=== PATIENT | male | born 1980 ===

== ENCOUNTER 2016-07-24 23:59 | Inpatient (IN) ==
[2016-07-25] MEDS ORDERED: ACETAMINOPHEN 325 MG TABLET PO PRN (00:38)
[2016-07-25] MEDS ORDERED: oxyCODONE/ACETAMINOPHEN 5-325 MG TABLET PO PRN (00:38)
[2016-07-25] MEDS ORDERED: ONDANSETRON 4 MG/2 ML VIAL IV PRN (00:38)
[2016-07-25] MEDS ORDERED: MORPHINE 2 MG/1 ML SYRINGE IV PRN (00:38)
--- NOTE | 2016-07-25 00:38 | Emergency Department Note ---
Boni Chacon Brittany, am scribing for, and in the presence of, Senthil Trevino MD 00:29. Uriel Chacon Robert M, MD, personally performed the services described in this documentation, ascribed by Mary Plata in my presence, and it is both accurate and complete . Arrival - Arrival Chief Complaint: Extremity Problem ED Nursing Triage Note: PT ARRIVES VIA TRANSFER FROM [facility] FOR FURTHER EVAL OF POSSIBLE CELLULITIS TO LEFT FOOT AND NECROTIC FIFTH TOE. PT STATES THAT HE STARTED HAVING PROBLEMS WITH FOOT ABOUT A MONTH AGO AND THAT IT HAS GOTTEN WORSE. DENIES ANY FEVER AND DENIES BEING COMPLIANT WITH MEDICATION. PT IS NOTED TO HAVE ELEVATED B/P AT TIME OF TRIAGE. Mode of Arrival: Stretcher Limitations: No Limitations Source: Patient, RN Notes Reviewed Time Seen by Provider: 07/25/16 00:24 - History of Present Illness HPI Narrative: Patient is a 35 y/o [place] male presenting to the ED by EMS from [facility] for further evaluation of necrotic left fifth toe. Patient states , "I think it's ," in reference to his left fifth toe. Patient reports that his toe began to appear as it does now about a week ago, but problems began about 3 weeks ago as a blister but has progressively worsened to necrosis. He does have a history of IDDM, last blood glucose level was 312 mg/dL and was given insulin at the transferring facility. Patient has no other complaint/pain in the ED at this time. Review of System - Review of System 12 point system: reviewed and no additional remarkable complaints except as stated - Review of System Constitutional: Absent: chills, fever Eyes: Absent: vision change Head/Ears/Nose/Throat: Absent: nasal drainage, sore throat Respiratory: Absent: respiratory distress Cardiovascular: Absent: chest pain Gastrointestinal: Absent: abdominal pain, nausea, vomiting, diarrhea, constipation Genitourinary male: Absent: urgency, dysuria, frequency Musculoskeletal: Absent: arm pain, back pain, leg pain, neck pain Skin: Present: as per HPI Neurological: Absent: headache Psychiatric: Absent: anxiety, depression Medical,Surgical,& Family Hx - Medical History Cardio: History of: Hypertension Endocrine: History of: Diabetes Mellitus (IDDM) - Social History Smoking Status: Never smoker Frequency of Alcohol Use: None Type of Drug Use: None Exam Vital Signs: Vital Signs Temperature 98.4 F 07/24/16 23:59 Pulse Rate 99 H 07/24/16 23:59 Respiratory Rate 22 07/24/16 23:59 Blood Pressure 205/116 07/24/16 23:59 O2 Sat by Pulse Oximetry 96 07/24/16 23:59 - General General appearance: alert, in no apparent distress - Head Head exam: Present: atraumatic, normocephalic, normal inspection - Eye Eye exam: Present: normal appearance, PERRL, EOMI - ENT ENT exam: Present: normal exam, normal oropharynx - Neck Neck exam: Present: normal inspection, full ROM, trachea midline - Chest Chest inspection: Present: normal inspection, symmetric chest wall rise - Respiratory Respiratory exam: Present: normal lung sounds bilaterally. Absent: rales, rhonchi, wheezes - Cardiovascular Cardiovascular exam: Present: regular rate, normal rhythm, normal heart sounds. Absent: murmur, rubs, gallop - Abdominal Exam Abdominal exam: Present: soft, normal bowel sounds. Absent: distention, tenderness - Extremities Exam Extremities exam: Present: full ROM. Absent: normal inspection (dry, necrotic black left fifth toe), tenderness - Back Exam Back exam: Present: normal inspection - Neurological Exam Neurological exam: Present: alert, oriented X3, CN II-XII intact. Absent: motor sensory deficit - Psychiatric Psychiatric exam: Present: normal affect - Skin Skin exam: Present: warm, dry, other (necrotic, dry left fifth toe) Disposition Clinical Impression: Left fifth toe gangrene Case discussed with: patient Disposition: Still a Patient Condition: Stable Time of Disposition: 00:37
[2016-07-25] MEDS ORDERED: GLUCAGON 1 MG VIAL IM PRN (00:39)
[2016-07-25] MEDS ORDERED: DEXTROSE 50% 25 GM/50 ML VIAL IV PRN (00:39)
[2016-07-25] MEDS ORDERED: cloNIDine 0.1 MG TABLET ONE (01:22)
[2016-07-25] MEDS ORDERED: INSULIN REGULAR 100 UNIT/ML ONE (01:25)
[2016-07-25] MEDS: INSULIN REGULAR 100 UNIT/ML SUBCUT SCH ×4 (01:29→18:03)
[2016-07-25] MEDS ORDERED: LABETALOL 20 MG/4 ML SYRINGE IV PRN (02:01)
[2016-07-25] MEDS: SODIUM CHLORIDE 0.45% 1,000 ML IV SCH ×3 (02:47→20:31)
[2016-07-25] MEDS: PIPERACILLIN/TAZOBACTAM 3,375 MG in SODIUM CHLORIDE 0.9% 100 ML IV SCH ×3 (02:47→17:14)
[2016-07-25 08:05] LABS: Basophils % 0.2 % (0.0-0.8); Eosinophils # 0.1 10*3/uL (0.0-0.87); Eosinophils % 0.6 % (0.00-10.9); Hematocrit 35.6 VOL% (42.0-52.0); Hemoglobin 11.5 GM/DL (14.0-18.0); Immature Granulocytes % 0.5 %; Immature Granulocytes Absolute 0.06 #; Lymphocytes # 2.3 10*3/uL (1.4-4.0); Lymphocytes % 18.6 % (21.2-54.2); Mean Corpuscular HGB Conc 32.3 GM/DL (32-36); Mean Corpuscular Hemoglobin 26 PG (27-34); Mean Corpuscular Volume 81.1 FL (87-102); Mean Platelet Volume 10.2 FL (9.6-12.0); Monocytes # 1.1 10*3/uL (0.11-0.8); Monocytes % 8.9 % (1.7-12.7); Neutrophils # 8.7 10*3/uL (1.4-7.4); Neutrophils % 71.2 % (38.7-73.9); Platelet Count 434 T/CUMM (130-400); Red Blood Count 4.39 MC/CUMM (3.8-5.5); Red Cell Distribution Width 12.3 % (9.3-17.3); White Blood Count 12.2 T/CUMM (4-12)
--- NOTE | 2016-07-25 08:28 | General Surg History&Physical ---
Assessment and Plan (1) Diabetic wet gangrene of the foot Status: Acute Assessment and plan: Depression: Wet gangrene left fifth toe and distal foot Plan: Patient has been admitted and started on IV antibiotics. I discussed with him the need for amputation of his fifth toe and debridement of the nonviable tissue in efforts to salvage the majority of his foot. He understands he is at risk for a higher amputation. I discussed the procedure for a left fifth toe amputation and debridement and how procedures performed and anticipated recovery. He understands she'll have an open wound. Risk of the procedure including bleeding, infection, damage to surrounding structures, need for further surgery were all discussed in detail and he agrees to proceed. We'll consult hospitalist to manage his medical problems. He understands he may lose more than the fifth toe if the infectious process is extensive. Current Visit: Yes History of Present Illness Chief complaint: infected left foot History of present illness: Mr. Marquez is a 35 year old male with poorly controlled hypertension and diabetes presented to [facility] and then subsequently transferred to our emergency room with infection of his left foot. Patient states he's had a problem for over a month. He states the problem started in his left fifth toe and he developed redness and foul-smelling drainage. He denies fever. He denies chest pain and shortness of breath. He is not very compliant with his medications. Home Medications Medication Instructions Recorded Confirmed Type Chlorthalidone 25 mg PO DAILY 07/25/16 07/25/16 History hydrALAZINE TAB [Apresoline Tab] 25 mg PO DAILY 07/25/16 07/25/16 History Allergies Allergy/AdvReac Type Severity Reaction Status Date / Time No Known Allergies Allergy Unverified 07/25/16 01:16 Medical,Surgical,& Family Hx - Medical History Cardio: History of: Hypertension HEENT: History of: Eye Problem (wear glasses) Endocrine: History of: Diabetes Mellitus (IDDM) - Family History Family History: Reports;: Family Heart Disease (maternal aunt and uncle) - Social History Smoking Status: Never smoker Frequency of Alcohol Use: None Type of Drug Use: None Exam - Constitutional Vitals: Period Temp Pulse Resp BP Sys/Vogt Pulse Ox Last 24 Hr 98.5 F-99.4 F 79-94 18-22 141-191/84-115 95-99 General appearance: no acute distress - Head Head exam: Present: normocephalic - Neck Neck exam: Present: normal inspection - Respiratory Respiratory exam: Present: clear to auscultation bilaterally - Cardiovascular Cardiovascular exam: Present: RRR - GI/Abdominal GI/Abdominal exam: Present: soft (obese and nontender) - Extremities Exam Extremities exam: Present: other (feet warm bilaterally. Most of the left fifth toe has dry gangrene and appears mummified. The base of the toe has wet gangrene with foul-smelling purulence. Erythema extends to the mid foot along the lateral aspect of the foot.) - Back Exam Back exam: Present: normal inspection - Neurological Exam Neurological exam: Present: alert, oriented X3 Speech: Present: normal 12 point system: reviewed and no additional remarkable complaints except as stated Results - Labs CBC & BMP: 07/25/16 07:41 Lab Results: I have reviewed the past 24 hour labs
[2016-07-25 08:35] LABS: Calcium 8.1 MG/DL (8.5-10.1); Potassium 3.9 MMOL/L (3.5-5.1)
[2016-07-25] MEDS ORDERED: LABETALOL 100 MG/20 ML VIAL IV ONE (09:04)
[2016-07-25] MEDS ORDERED: hydrALAZINE 20 MG/1 ML VIAL ONE (10:01)
[2016-07-25] MEDS ORDERED: MIDAZOLAM 2 MG/2 ML VIAL ONE (10:03)
[2016-07-25] MEDS ORDERED: fentaNYL 100 MCG/2 ML VIAL ONE (10:03)
--- NOTE | 2016-07-25 10:06 | EKG Report ---
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
[2016-07-25] MEDS ORDERED: hydrALAZINE 20 MG/1 ML VIAL IM ONE (10:12)
--- NOTE | 2016-07-25 10:29 | Operative Note ---
Date of procedure: 07/25/16 Pre-op diagnosis: wet gangrene left fifth toe Post-op diagnosis: same Procedure: Procedure performed: Transmetatarsal amputation left fifth toe Procedure in detail: After informed consent was obtained, patient was taken operating suite and laid supine on the operating table. After monitored anesthesia was induced the left foot was prepped and draped in usual sterile fashion. After procedural pause 15 blade scalpel was used to perform a elliptical incision around the base of the left fifth toe. Dissection carried into the soft tissue which appeared necrotic on the medial aspect. Dissected down to the interphalangeal joint and removed the toe at this level. There was obvious osteomyelitis. Debrided back the soft tissue and performed a transmetatarsal amputation removing the head of the metatarsal with bone cutters. I then excised the remaining necrotic tissue using a 15 blade scalpel. This necrotic tissue was removed from the plantar surface below the head of the fourth metatarsal as well as close to the lateral aspect of the fourth metatarsal phalangeal joint. Removed all the nonviable tissue. The left fourth toe was not obviously involved but the infection extended very close to it and he may require fourth toe amputation in the future. The wound was irrigated and suction there was good hemostasis and it was packed with Dakin 's gauze. Sterile dressings applied. Patient was taken recovery room in stable condition. All lap and needle counts correct at the end of the case. Anesthesia: MAC Surgeon / Physician: Jorge Nagel Estimated blood loss: other (less than 10 mL) Specimens: other (left fifth toe) Condition: stable Disposition: PACU Results - Labs CBC & BMP: 07/25/16 07:41 07/25/16 07:41 Discharge Plan - Discharge Medications No Action Chlorthalidone 25 mg PO DAILY hydrALAZINE TAB [Apresoline Tab] 25 mg PO DAILY - Follow Up or Referral - Forms/Instructions
[2016-07-25 10:47] LABS: Troponin I Only 0.081 NG/ML (0.00-0.045)
--- NOTE | 2016-07-25 12:15 | Anesthesia ---
Anesthesia Post OP - Post Ansesthetic Evaluation Patient seen in post op: Yes Resp: within normal limits CV: within normal limits Mental: within normal limits Temp: within normal limits [id number]: within normal limits Nausea and Vomiting: within normal limits Pain: within normal limits
--- NOTE | 2016-07-25 13:58 | Hospitalist Consult Note ---
Assessment and Plan (1) DM2 (diabetes mellitus, type 2) Status: Acute Assessment and plan: The patient was admitted to hospital with hyperglycemia. It is improving with sliding scale insulin. I am going to add glipizide and follow glucometers. Current Visit: Yes Qualifiers: Diabetes mellitus complication status: with neurologic complications Diabetes mellitus complication detail: with polyneuropathy Diabetes mellitus fpc insulin use: without fpc use Qualified Code(s): E11.42 - Type 2 diabetes mellitus with diabetic polyneuropathy (2) Diabetic wet gangrene of the foot Status: Acute Current Visit: Yes History of Present Illness - Data of Consult Consult date: 07/25/16 Requesting Physician: Jorge Nagel - Consult Narrative Reason for consult: Hyperglycemia History of present illness: Mr. Marquez is a 35 year old male CC: Jorge Nagel MD - Home Medications and Allergies Home Medications: Home Medications Medication Instructions Recorded Confirmed Type Chlorthalidone 25 mg PO DAILY 07/25/16 07/25/16 History hydrALAZINE TAB [Apresoline Tab] 25 mg PO DAILY 07/25/16 07/25/16 History Allergies/Adverse Reactions: Allergies Allergy/AdvReac Type Severity Reaction Status Date / Time No Known Allergies Allergy Unverified 07/25/16 01:16 Medical,Surgical,& Family Hx - Medical History Cardio: History of: Hypertension HEENT: History of: Eye Problem (wear glasses) Endocrine: History of: Diabetes Mellitus (IDDM) - Family History Family History: Reports;: Family Heart Disease (maternal aunt and uncle) - Social History Smoking Status: Never smoker Frequency of Alcohol Use: None Type of Drug Use: None Marital Status: Single Lives With:: Parent Functional capacity: independent ambulation 12 point system: reviewed and no additional remarkable complaints except as stated Exam - Constitutional Vitals: Period Temp Pulse Resp BP Sys/Vogt Pulse Ox Last 24 Hr 97.6 F-99.4 F 79-94 18-23 137-191/84-115 10-100 Exam: Constitutional System: No distress. No tremulousness. Head: Normocephalic, atraumatic. Ears, Nose and Throat System: No evidence of Otitis or Mastoiditis. No epistaxis or discharge Eyes System: Pupils equal, round, and reactive. Extraocular muscles intact. Neck: Supple, without adenopathy, No jugular venous distention. No thyromegaly , neck mass, or prior surgery apparent. Respiratory System: Chest clear to auscultation. Cardiovascular System: Heart with regular rate and rhythm. No murmur. GI System: Abdomen soft, nontender. Normo active bowel sounds present. Results - Labs CBC & BMP: 07/25/16 07:41 07/25/16 07:41 Lab Results: I have reviewed the past 24 hour labs
[2016-07-25] MEDS: PANTOPRAZOLE 40 MG TABLET PO SCH (15:44)
[2016-07-25 17:03] LABS: Troponin I Only 0.067 NG/ML (0.00-0.045)
[2016-07-26] MEDS: INSULIN REGULAR 100 UNIT/ML SUBCUT SCH ×4 (00:50→18:50)
[2016-07-26] MEDS: PIPERACILLIN/TAZOBACTAM 3,375 MG in SODIUM CHLORIDE 0.9% 100 ML IV SCH ×3 (00:51→20:53)
[2016-07-26] MEDS: SODIUM CHLORIDE 0.45% 1,000 ML IV SCH ×4 (02:57→20:55)
[2016-07-26 03:15] LABS: Calcium 7.8 MG/DL (8.5-10.1); Magnesium 1.9 MG/DL (1.8-2.4); Potassium 3.5 MMOL/L (3.5-5.1)
[2016-07-26] MEDS ORDERED: glipiZIDE 5 MG TABLET PO SCH (07:30)
--- NOTE | 2016-07-26 08:30 | Event Note ---
07/26/2016 Status post amputation left fifth toe wound bed looks fairly clean although the dressing is dry and stuck to it. Will start in wound care to ensure that we do not get any dryness here with potential losing further skin.
[2016-07-26] MEDS: PANTOPRAZOLE 40 MG TABLET PO SCH (09:03)
[2016-07-26] MEDS ORDERED: SKIN HEALING OINT (AQUAPHOR) 50 GM TUBE TOP PRN (09:08)
[2016-07-26] MEDS: SODIUM HYPOCHLORITE 0.25% IRRIG 473 ML BOTTLE TOP SCH (09:45)
--- NOTE | 2016-07-26 12:34 | Hospitalist Progress Note ---
Assessment and Plan (1) DM2 (diabetes mellitus, type 2) Status: Acute Assessment and plan: The patient was admitted to hospital with hyperglycemia. It is improving with sliding scale insulin. I am going to increase glipizide and follow glucometers. Current Visit: Yes Qualifiers: Diabetes mellitus complication status: with neurologic complications Diabetes mellitus complication detail: with polyneuropathy Diabetes mellitus termite technician insulin use: without halfway use Qualified Code(s): E11.42 - Type 2 diabetes mellitus with diabetic polyneuropathy (2) Diabetic wet gangrene of the foot Status: Acute Current Visit: Yes Hospitalist: Subjective Interval history: The patient had surgery to debride infection of the left foot yesterday. Blood glucose has less than optimal control. I am going to increase glipizide today. The patient has no complaint of shortness of breath or angina Exam - Constitutional Vitals: Period Temp Pulse Resp BP Sys/Vogt Pulse Ox Last 24 Hr 98.2 F-99.7 F 89-94 18-20 133-187/81-112 91-96 Exam: Constitutional System: No distress. No tremulousness. Head: Normocephalic, atraumatic. Ears, Nose and Throat System: No evidence of Otitis or Mastoiditis. No epistaxis or discharge Eyes System: Pupils equal, round, and reactive. Extraocular muscles intact. Neck: Supple, without adenopathy, No jugular venous distention. No thyromegaly , neck mass, or prior surgery apparent. Respiratory System: Chest clear to auscultation. Cardiovascular System: Heart with regular rate and rhythm. No murmur. GI System: Abdomen soft, nontender. Normo active bowel sounds present. Results - Labs CBC & BMP: 07/25/16 07:41 07/26/16 02:30 Lab Results: I have reviewed the past 24 hour labs
[2016-07-26] MEDS: LABETALOL 100 MG/20 ML VIAL IV PRN (20:48)
[2016-07-27] MEDS: INSULIN REGULAR 100 UNIT/ML SUBCUT SCH ×5 (00:09→22:13)
[2016-07-27] MEDS: LABETALOL 100 MG/20 ML VIAL IV PRN ×2 (04:03→09:34)
[2016-07-27] MEDS: SODIUM CHLORIDE 0.45% 1,000 ML IV SCH ×3 (04:11→22:16)
[2016-07-27] MEDS: PIPERACILLIN/TAZOBACTAM 3,375 MG in SODIUM CHLORIDE 0.9% 100 ML IV SCH ×3 (04:12→22:14)
[2016-07-27 05:52] LABS: Basophils % 0.2 % (0.0-0.8); Eosinophils # 0.2 10*3/uL (0.0-0.87); Eosinophils % 1.8 % (0.00-10.9); Hematocrit 35.6 VOL% (42.0-52.0); Hemoglobin 11.7 GM/DL (14.0-18.0); Immature Granulocytes % 0.4 %; Immature Granulocytes Absolute 0.04 #; Lymphocytes # 2.3 10*3/uL (1.4-4.0); Lymphocytes % 23.2 % (21.2-54.2); Mean Corpuscular HGB Conc 32.9 GM/DL (32-36); Mean Corpuscular Hemoglobin 26 PG (27-34); Mean Corpuscular Volume 79.6 FL (87-102); Mean Platelet Volume 10.3 FL (9.6-12.0); Monocytes # 0.8 10*3/uL (0.11-0.8); Monocytes % 7.7 % (1.7-12.7); Neutrophils # 6.7 10*3/uL (1.4-7.4); Neutrophils % 66.7 % (38.7-73.9); Platelet Count 484 T/CUMM (130-400); Red Blood Count 4.47 MC/CUMM (3.8-5.5); Red Cell Distribution Width 12.4 % (9.3-17.3)
[2016-07-27 06:29] LABS: Calcium 8.2 MG/DL (8.5-10.1); Magnesium 2.1 MG/DL (1.8-2.4); Osmolality,Calculated 280.5 MOS/KG (273-304); Potassium 3.8 MMOL/L (3.5-5.1)
--- NOTE | 2016-07-27 09:30 | Hospitalist Progress Note ---
Assessment and Plan (1) DM2 (diabetes mellitus, type 2) Status: Acute Assessment and plan: The patient was admitted to hospital with hyperglycemia. It is improving with sliding scale insulin. The patient is now on glipizide 10 mg daily and I am going to change the glucometers to before meals and at bedtime. 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 Blood glucose control is improving on oral antidiabetic medication. Exam - Constitutional Vitals: Period Temp Pulse Resp BP Sys/Vogt Pulse Ox Last 24 Hr 98.0 F-98.8 F 86-94 16-20 164-194/91-117 91-96 Exam: Constitutional System: No distress. No tremulousness. Head: Normocephalic, atraumatic. Ears, Nose and Throat System: No evidence of Otitis or Mastoiditis. No epistaxis or discharge Eyes System: Pupils equal, round, and reactive. Extraocular muscles intact. Neck: Supple, without adenopathy, No jugular venous distention. No thyromegaly , neck mass, or prior surgery apparent. Respiratory System: Chest clear to auscultation. Cardiovascular System: Heart with regular rate and rhythm. No murmur. GI System: Abdomen soft, nontender. Normo active bowel sounds present. Results - Labs CBC & BMP: 07/27/16 05:23 07/27/16 05:23 Lab Results: I have reviewed the past 24 hour labs
[2016-07-27] MEDS: PANTOPRAZOLE 40 MG TABLET PO SCH (09:34)
[2016-07-27] MEDS: glipiZIDE 10 MG TABLET PO SCH (09:34)
[2016-07-27] MEDS ORDERED: NIFEdipine 10 MG CAPSULE PO PRN (09:56)
--- NOTE | 2016-07-27 11:06 | Event Note ---
07/27/2016. Patient remains stable at this point and wound care is underway. Cultures final are not completely out so we do not know what his sensitivities are at this time.
[2016-07-27] MEDS: LISINOPRIL 5 MG TABLET PO SCH (13:46)
[2016-07-27] MEDS: amLODIPine 10 MG TABLET PO SCH (13:47)
[2016-07-27] MEDS: SODIUM HYPOCHLORITE 0.25% IRRIG 473 ML BOTTLE TOP SCH (15:15)
[2016-07-28] MEDS: PIPERACILLIN/TAZOBACTAM 3,375 MG in SODIUM CHLORIDE 0.9% 100 ML IV SCH ×2 (06:31→12:57)
[2016-07-28] MEDS: SODIUM CHLORIDE 0.45% 1,000 ML IV SCH ×2 (06:33→09:00)
[2016-07-28] MEDS: INSULIN REGULAR 100 UNIT/ML SUBCUT SCH ×3 (07:53→15:54)
[2016-07-28] MEDS: glipiZIDE 10 MG TABLET PO SCH (07:56)
[2016-07-28] MEDS: amLODIPine 10 MG TABLET PO SCH (08:02)
[2016-07-28] MEDS: PANTOPRAZOLE 40 MG TABLET PO SCH (08:02)
[2016-07-28] MEDS: LISINOPRIL 5 MG TABLET PO SCH (08:02)
--- NOTE | 2016-07-28 11:03 | Pathology Report from [facility] ---
ACCESSION # : [id number] PATIENT NAME : Medina Proctor ORDERING DR : Jorge Nagel MD CLINICAL HX: Left foot fifth toe wet gangrene with abscess POST-OP DX: Same SPECIMEN INFO: Left fifth toe GROSS DESCRIPTION: The specimen is received in formalin labeled with the patient 's name Medina Proctor consists of a focally gangrenous toe measuring 3.8 x 2.2 cm, along with a bone fragment measuring 2.0 x 2.3 cm. Mate [place] sections of gangrenous tissue is submitted in one cassette. DIAGNOSIS FOR MEDINA PROCTOR: LEFT FIFTH TOE: Wet gangrene. SERVICE DATE: 07/25/2016 REPORT DATE: 07/28/2016 PATHOLOGIST: Shellie Willard III, M.D. MTDD
[2016-07-28] MEDS: SODIUM HYPOCHLORITE 0.25% IRRIG 473 ML BOTTLE TOP SCH (13:00)
--- NOTE | 2016-07-28 15:07 | Discharge Summary ---
Hospital Course - Hospital Course Hospital Course: Patient presented with white green gangrene of the left fifth toe for which we proceeded with fifth transmetatarsal amputation on 07/25/[address] Nagel. Hospitalist was consulted regarding persistent hyperglycemia which improved adding an oral agent. The patient was able to mobilize without difficulty and proceeded without complication. He was able to void and had a bowel movement without difficulty. Tolerating p.o. intake. Cultures grew Proteus and enterococcus. Dressing change on day of discharge revealed present resolution of erythema and no residual associated edema. He will require continued daily wound care changes as well as antibiotics. Necessity to improve glycemic control was reviewed with the patient to improve healing capacity and decrease risk of further loss of the foot. He expressed understanding. Pt discharged on levaquin 500mg PO daily x 2 wks. Modification to med list thru ambulatory orders. - Time spent with patient Time with patient DS: Less than 30 minutes Diagnosis - Discharge Diagnosis (1) Diabetic wet gangrene of the foot Status: Acute (2) DM2 (diabetes mellitus, type 2) Status: Acute Specialty Discharge - Follow Up or Referrals Follow up with: Jorge Nagel MD [Physician] - 1 Week Discharge Plan - Discharge Data Condition at Discharge: Stable Discharge Diet: diabetic diet (Wear offloading shoe - rx provided. Avoid prolonged standing or walking. Elevate LLE > 20 min/hr. ) Hygiene: may shower, keep area(s) dry Weight Bearing at Discharge: other (Wear offloading shoe ) Driving: other (No driving while taking narcotics) Contact your physician if you experience:: fever over 101, Difficulty voiding, Redness or swelling, Nausea/Vomiting, Shortness of breath, Bleeding, pain uncontrolled by pain medications (Drainage or malodor from foot wound) Wound / Dressing Care Instructions: Follow with wound care daily to left 5th transmetatarsal amputation site. Clean wound with saline. Apply dakins soaked gauze over the open wound. Apply vaseline gauze over de-epithelialized area of the wound. Cover with dry cauze, cast padding and loosely wrapped coban. - Discharge Medications New HYDROcodone/ACETAMIN 7.5-325 [[place] 7.5-325] 1 tablet PO Q4H PRN #30 tablet PRN Reason: Pain Moderate To Severe (4-10) Lisinopril [Prinivil] 5 mg PO DAILY #30 tablet NIFEdipine CAP [Procardia] 10 mg PO Q4H PRN #0 capsule PRN Reason: Hypertension glipiZIDE [Glucotrol] 10 mg PO AC BREAKFAST #30 tablet amLODIPine [Norvasc] 10 mg PO DAILY #30 tablet Levofloxacin Tab [Levaquin Tab] 500 mg PO DAILY #14 tablet Continue hydrALAZINE TAB [Apresoline Tab] 25 mg PO DAILY Discontinued Chlorthalidone 25 mg PO DAILY - Follow Up or Referral Follow Up: Jorge Nagel MD [Physician] - 1 Week - Forms/Instructions Additional Discharge Instructions: F/u primary care provider for blood pressure and diabetes medication changes 1-2 weeks Exam - Constitutional Vitals: Period Temp Pulse Resp BP Sys/Vogt Pulse Ox Last 24 Hr 97.0 F-98.5 F 83-88 17-20 154-206/89-121 93-97 General appearance: no acute distress - Eye Eye exam: Absent: conjunctival injection, scleral icterus - Respiratory Respiratory exam: Present: clear to auscultation bilaterally - Cardiovascular Cardiovascular exam: Present: regular rate and rhythm - GI/Abdominal GI/Abdominal exam: Present: normal bowel sounds, soft. Absent: distended, tenderness - Extremities Exam Extremities exam: Absent: calf tenderness, edema - Neurological Exam Neurological exam: Present: alert, oriented X3 - Psychiatric Psychiatric exam: Present: normal affect, normal mood - Skin Skin exam: Present: other (Left foot with granulation tissue at the base of the wound with fifth metatarsal exposure at the very tip. No malodor, active drainage, active bleeding, erythema or significant edema.) Discharge Results Procedures and tests throughout hospitalization: Pending Orders 07/25/16 09:30 Anaerobic Culture Routine Cultures: proteus and enterococcus Labs on day of discharge: Labs from last 24 hours 07/28/16 07/28/16 07/27/16 12:04 07:11 20:18 POC Glucose 196 H 198 H 172 H 07/27/16 17:45 POC Glucose 212 H DS: Provider Date of admission: 07/25/16 00:38 Primary care physician: Betsey Billy MD Attending physician on admission: Jorge Nagel MD Consults: 07/25/16 07:31 Consult to Physician [CONS] Routine Comment: medical talent management specialist Provider: Thomas Bae Consulting Provider Notified: Yes When should Consulting Provider be notified: Now Consult to Specialist Group: Hospitalist When should Consulting Provider be notified: Now Person Notified: william pritchard mari Date Notified: 07/25/16 Time Notified: 08:23 07/26/16 08:32 Consult to Wound Care - [place] [CONS] Routine Reason for Wound Care: Wound Care Management Consult Comment: left foot wound Discharging clinician: Sofi Martinez PA-C
[2016-07-28 16:18] VITALS: BP 147/94
== END 2016-07-28 17:12 | disposition home or self-care (01) | DRG 240 ==
LOC: EDBD → EDUNIT# → N.ED 23:59 → N.EDINP 07-25 00:38 → SUATTDRO 07-25 00:38 → N.3E 07-25 00:40
PROVIDERS: ADMIT Surgery; ATTEND Surgery

== ENCOUNTER 2016-08-20 11:54 | Inpatient (IN) ==
[2016-08-20] MEDS ORDERED: VANCOMYCIN (NICU) 1,000 MG in SYRINGE 1 EACH IV SCH (13:30)
[2016-08-20] MEDS ORDERED: ACETAMINOPHEN 325 MG TABLET PO PRN (14:55)
[2016-08-20] MEDS ORDERED: ONDANSETRON 4 MG/2 ML VIAL IV PRN (14:55)
[2016-08-20] MEDS ORDERED: GLUCAGON 1 MG VIAL IM PRN (15:03)
[2016-08-20] MEDS ORDERED: DEXTROSE 50% 25 GM/50 ML VIAL IV PRN (15:03)
--- NOTE | 2016-08-20 15:09 | General Surg History&Physical ---
Assessment and Plan (1) Wound infection after surgery Status: Acute Assessment and plan: The patient is a febrile on admission with apparent cellulitis associated with previous left fifth transmetatarsal amputation. Cannot rule out abscess and/or osteomyelitis at this time. We will obtain baseline labs as well as a foot x- ray. Start vancomycin and ciprofloxacin based on previous cultures. Consult pharmacy for dosing. We will plan for repeat debridement tomorrow. The indications for repeat debridement as well as the alternatives treatment options were reviewed with the patient. The risks were reviewed including but not limited to worsening of infection, further loss of the foot and/or limb, bleeding, blood vessel injury, nonhealing or abnormal healing of the wound and or bone, gait disturbance, septicemia which could become life-threatening, reactions to medications, heart attack, pneumonia, stroke, hemothorax, pneumothorax, and other unforeseeable cardiac, pulmonary and neurologic complications including the possibility of . Patient verbally expressed understanding of these risks and agrees to proceed with a debridement tomorrow. Current Visit: Yes (2) Hypertension Status: Acute Assessment and plan: Elevated at this time. Continue home medications and monitor. Current Visit: Yes (3) DM2 (diabetes mellitus, type 2) Status: Acute Assessment and plan: Patient reports better control at home with blood glucose levels from 160-180 on average. Continue her medications with sliding scale insulin. Current Visit: No Qualifiers: Diabetes mellitus complication status: with neurologic complications Diabetes mellitus complication detail: with polyneuropathy Diabetes mellitus senior care insulin use: without senior care use Qualified Code(s): E11.42 - Type 2 diabetes mellitus with diabetic polyneuropathy (4) Prophylactic measure Status: Acute Assessment and plan: 1. DVT prophylaxis: SCDs. Start Lovenox when stable postoperatively 2. GI prophylaxis: Protonix daily. 3. Disposition: Patient will likely discharge home. Current Visit: Yes History of Present Illness Chief complaint: Foot infection History of present illness: Mr. Marquez is a 35 year old male with past medical history of diabetes mellitus and hypertension who is now approximate 4 weeks status post left fifth transmetatarsal amputation. At that time his wound grew out multiple organisms including Proteus, enterococcus, and Bacteroides. He was discharged on ciprofloxacin as he had responded well to fluoroquinolones while inpatient. The patient reports compliance with his completion of antibiotics postoperatively. He did miss his follow-up appointment with Dr. Gaitan yesterday, and was worked into Dr. Baez' clinic schedule today. He reports over the past 1 week she has had increased edema and erythema associated with the left foot for which he initially sought treatment at the [facility] who recommended decrease use and and ambulating with crutches. He attempted this therapy with worsening of symptoms. He denies fever until today. No abd pain, nausea, vomiting, diarrhea, chest pain, shortness of breath , wheeze, cough, dysuria, hematuria, urinary urgency or frequency or other wounds. Home Medications Medication Instructions Recorded Confirmed Type HYDROcodone/ACETAMIN 7.5-325 1 tablet PO Q4H PRN #30 tablet 07/28/16 08/20/16 Rx [[place] 7.5-325] Lisinopril [Prinivil] 5 mg PO DAILY #30 tablet 07/28/16 08/20/16 Rx amLODIPine [Norvasc] 10 mg PO DAILY #30 tablet 07/28/16 08/20/16 Rx glipiZIDE [Glucotrol] 10 mg PO AC BREAKFAST #30 tablet 07/28/16 08/20/16 Rx Allergies Allergy/AdvReac Type Severity Reaction Status Date / Time No Known Allergies Allergy Unverified 07/25/16 01:16 Medical,Surgical,& Family Hx - Medical History Cardio: History of: Hypertension HEENT: History of: Eye Problem (wear glasses) Endocrine: History of: Diabetes Mellitus (NIDDM) Musculoskeletal: History of: Musculoskeletal Problems (Osteomyelitis left foot) - Surgical History Orthopedic Surgeries: Surgical HX of;: Orthopedic Surgery (Left knee arthroscopy ; left 5th transmetatarsal amputation) - Family History Family History: Reports;: Family Heart Disease (maternal aunt and uncle) - Social History Smoking Status: Never smoker Frequency of Alcohol Use: None Type of Drug Use: None Exam - Constitutional Vitals: Period Temp Pulse Resp BP Sys/Vogt Pulse Ox Last 24 Hr 101.1 F 105-105 20 163/95 93 General appearance: no acute distress, morbidly obese - Head Head exam: Present: normal inspection, normocephalic, atraumatic - Respiratory Respiratory exam: Present: clear to auscultation bilaterally - Cardiovascular Cardiovascular exam: Present: RRR - GI/Abdominal GI/Abdominal exam: Present: normal bowel sounds, soft. Absent: tenderness - Extremities Exam Extremities exam: Present: other (Left foot with fifth toe absent and open wound at the base of the previous transmetatarsal amputation site with fibrinous exudates and associated erythema extending to the hindfoot. No expressible drainage or fluctuance or induration. DP is palpable. Remaining toes are warm with brisk capillary refill.). Absent: calf tenderness, edema - Neurological Exam Neurological exam: Present: alert, oriented X3 - Skin Skin exam: Present: normal color, warm - Constitutional Constitutional: Present: as per HPI - Cardiovascular Cardiovascular: Present: as per HPI - Respiratory Respiratory: Present: as per HPI - Gastrointestinal Gastrointestinal: Present: as per HPI - Genitourinary Genitourinary: Present: as per HPI - Musculoskeletal Musculoskeletal: Absent: arthralgias Hematologic/Lymphatic: Absent: easy bleeding, easy bruising Quality Measures - VTE Contraindication to Pharmacological VTE Prophylaxis: High Risk of Bleeding Results - Labs Labs: Previous chart reviewed including wound cultures and sensitivities. Reviewed hypertension and diabetes management as well.
[2016-08-20] MEDS: SODIUM CHLORIDE 0.9% 1,000 ML IV SCH (15:38)
[2016-08-20 15:41] LABS: Basophils % 0.2 % (0.0-0.8); Eosinophils # 0.1 10*3/uL (0.0-0.87); Eosinophils % 0.4 % (0.00-10.9); Hematocrit 34.7 VOL% (42.0-52.0); Hemoglobin 11.3 GM/DL (14.0-18.0); Immature Granulocytes % 0.6 %; Immature Granulocytes Absolute 0.11 #; Lymphocytes # 2.2 10*3/uL (1.4-4.0); Lymphocytes % 12.6 % (21.2-54.2); Mean Corpuscular HGB Conc 32.6 GM/DL (32-36); Mean Corpuscular Hemoglobin 26 PG (27-34); Mean Corpuscular Volume 78.9 FL (87-102); Mean Platelet Volume 9.5 FL (9.6-12.0); Monocytes # 1.6 10*3/uL (0.11-0.8); Monocytes % 9.1 % (1.7-12.7); Neutrophils # 13.5 10*3/uL (1.4-7.4); Neutrophils % 77.1 % (38.7-73.9); Platelet Count 379 T/CUMM (130-400); Red Cell Distribution Width 13.1 % (9.3-17.3); White Blood Count 17.5 T/CUMM (4-12)
[2016-08-20] MEDS ORDERED: VANCOMYCIN INJ 1,500 MG in SODIUM CHLORIDE 0.9% 500 ML IV SCH (16:00)
[2016-08-20 16:08] LABS: Calcium 8.2 MG/DL (8.5-10.1); Osmolality,Calculated 266.8 MOS/KG (273-304); Potassium 3.9 MMOL/L (3.5-5.1)
[2016-08-20] MEDS: CIPROFLOXACIN INJ 400 MG in PREMIX 1 EACH IV SCH (16:29)
--- NOTE | 2016-08-20 16:53 | XRay Report ---
XR foot 3V LT Clinical Information: foot infection p/o - r/o osteo Comparison: None available Findings: Status post amputation of the small toe is noted. There is surrounding soft tissue swelling and suggestion of focal soft tissue ulceration at the amputation site. Additionally, there is indistinctness of the cortex of the distal small toe metatarsal bone, which may be related to prior resection or developing osteomyelitis. No additional acute fractures are identified. No suspicious osseous lesions are identified. Impression: Postsurgical changes status post amputation of the small toe. Soft tissue swelling/ulceration at the surgical site with indistinctness of the distal aspect of the small toe metatarsal bone may represent postsurgical changes although developing osteomyelitis is also a consideration. Consider MR imaging of the foot without contrast for confirmation. PROCEDURE INTERPRETED AT [facility] Final Report Signed by: Nitin Riley
--- NOTE | 2016-08-20 16:53 | XRay Report ---
Exam: XR chest 2V Indication: Postop fever Comparison study: None Findings: The heart, mediastinum, and bony structures are within normal limits. There is no focal consolidation, pneumothorax or pleural effusion identified. Impression: No acute cardiopulmonary process. PROCEDURE INTERPRETED AT [facility] OF RADIOLOG[facility] Final Report Signed by: Nitin Riley
[2016-08-20 17:02] LABS: Apearance,Urine CLEAR (Clear); Bilirubin,Urine Negative (Negative); Blood, Urine Small mg/dL (Negative); Glucose,Urine (UA) >=500 mg/dL (Negative); Ketones,Urine Negative (Negative); Nitrite,Urine Negative (Negative); Protein,Urine 100 MG/DL; RBC,Urine 3 /HPF (0-4); Squamous Epithelial Cell,Urine Occasional /HPF (0-10); Urine Color Yellow (Yellow); Urine Specific Gravity 1.012 (1.001-1.035); Urine Urobilinogen < 2.0 EU/DL (0.2-1.0); WBC,Urine 5 /HPF (0-6)
[2016-08-20] MEDS: INSULIN REGULAR 100 UNIT/ML SUBCUT SCH ×2 (17:30→22:50)
[2016-08-20] MEDS: VANCOMYCIN INJ 1,500 MG in SODIUM CHLORIDE 0.9% 500 ML IV SCH (18:28)
--- NOTE | 2016-08-20 22:22 | Hospitalist Consult Note ---
Assessment and Plan (1) Accelerated hypertension Status: Acute Assessment and plan: At home patient is uses nightly lisinopril 5 mg daily; I believe this in antihypertensive can be boosted up to 20 mg daily. He is on amlodipine 10 mg daily we should be continued. Here in the hospital we will supplement these blood pressure medication with IV hydralazine 10 mg IV every 6 hours as needed for systolic blood pressure greater than 180. I will give him too much IV fluids with normal saline that is well with driving high blood pressure. Current Visit: Yes (2) Diabetes mellitus type 2, uncontrolled Status: Acute Assessment and plan: The patient is on the correlation of the. This diabetes is not well controlled. I will check an A1c on this admission. Noticed that this gentleman is not using insulin at home. He will be with the wire for the healing of the wound post surgery to control the blood sugar below 150 at all times. Output him on a basal insulin with the use of Lantus insulin 12 units at bedtime and use the intermediate sliding scale insulin here in the hospital. Also check lipid panel in the morning with a fasting blood draw. Patient will need a dietitian consultation because he says he has never seen one; these for dietary education for diabetes. Current Visit: Yes Qualifiers: Diabetes mellitus complication status: with hyperglycemia Diabetes mellitus retirement insulin use: without lobsterman use Qualified Code(s): E11.65 - Type 2 diabetes mellitus with hyperglycemia History of Present Illness - Consult Narrative Reason for consult: Medical management of blood pressure and patient has diabetes mellitus History of present illness: Mr. Atkinson is a 35-year-old diabetic male who was admitted today surgical management of an infected left foot. Patient has a history of transmetatarsal amputation of the left fifth toe. He is a diabetic who in talking to him blood sugars are now controlled at home. He tells me the ballpark numbers morning or evening is between 160s-180. He was in the hospital in July however is unfortunate there was no A1c done during that admission. The floor called me because of need to see him regarding his blood pressure Which was reported to me to be 210 mmHg systolic and a diastolic pressure above 100. Patient is able to talk to me without any limitations. He denies headaches denies any new weakness. His infected foot is wrapped in compressive dressing. Qgsjr-yv-diwz glucose is 208 mg percent. Regarding his blood pressure he states that he is systolic blood pressures in the 150s and 160s at home. I noted that during his stay in the hospital in July he did have some blood pressures in the 130s over 80s. However later during the hospital stay the systolic blood pressures were higher (160s-170s). Consent me at this point is where the we will not end up squeezing his blood pressures low to fast. CC: Peterson Baez III., - Home Medications and Allergies Home Medications: Home Medications Medication Instructions Recorded Confirmed Type HYDROcodone/ACETAMIN 7.5-325 1 tablet PO Q4H PRN #30 tablet 07/28/16 08/20/16 Rx [[place] 7.5-325] Lisinopril [Prinivil] 5 mg PO DAILY #30 tablet 07/28/16 08/20/16 Rx amLODIPine [Norvasc] 10 mg PO DAILY #30 tablet 07/28/16 08/20/16 Rx glipiZIDE [Glucotrol] 10 mg PO AC BREAKFAST #30 tablet 07/28/16 08/20/16 Rx Allergies/Adverse Reactions: Allergies Allergy/AdvReac Type Severity Reaction Status Date / Time No Known Allergies Allergy Unverified 07/25/16 01:16 Medical,Surgical,& Family Hx - Medical History Cardio: History of: Hypertension HEENT: History of: Eye Problem (wear glasses) Endocrine: History of: Diabetes Mellitus (NIDDM) Musculoskeletal: History of: Musculoskeletal Problems (Osteomyelitis left foot) - Surgical History Orthopedic Surgeries: Surgical HX of;: Orthopedic Surgery (Left knee arthroscopy ; left 5th transmetatarsal amputation) - Family History Family History: Reports;: Family Heart Disease (maternal aunt and uncle) - Social History Smoking Status: Never smoker Frequency of Alcohol Use: None Type of Drug Use: None Review of systems: A 12 point system assessment was done. Was turns out his extremely elevated blood pressures despite him taking his blood pressure medications at home. His blood sugars are also high. Is noted to be in the hospital with a cellulitis of the left foot and his white count is also high. Apart from this this review of systems significant with a chief complaint and history of presenting illness past medical history. Exam - Constitutional Vitals: Period Temp Pulse Resp BP Sys/Vogt Pulse Ox Last 24 Hr 100.8 F-101.1 F 103-105 20-20 153-163/86-95 93-98 General appearance: over weight - Head Head exam: Present: normocephalic, atraumatic - Eye Eye exam: Present: EOMI Pupils: Present: KAREN - ENT ENT exam: Present: normal oropharynx - Neck Neck exam: Present: other (Supple neck no JVD no bruits) - Respiratory Respiratory exam: Present: clear to auscultation bilaterally, other (No wheezing or rhonchi no rales) - Cardiovascular Cardiovascular exam: Present: regular rate and rhythm - GI/Abdominal GI/Abdominal exam: Present: normal bowel sounds, soft - Extremities Exam Extremities exam: Present: other (Cellulitis of the left foot which is dressed the proximal leg shows no advancing cellulitis though is warm to touch than the right one.) - Back Exam Back exam: Present: normal inspection - Neurological Exam Neurological exam: Present: alert, oriented X3, CN II-XII intact - Psychiatric Psychiatric exam: Present: normal affect, normal mood - Skin Skin exam: Present: normal color, warm, dry, other (Cellulitis in the left foot) Results - Labs CBC & BMP: 08/20/16 15:11 08/20/16 15:11 Lab Results: I have reviewed the past 24 hour labs Quality Measures - VTE Contraindication to Pharmacological VTE Prophylaxis: High Risk of Bleeding
[2016-08-20] MEDS: hydrALAZINE 20 MG/1 ML VIAL IV PRN (22:43)
[2016-08-20] MEDS ORDERED: SODIUM CHLORIDE 1 GM TABLET PO ONE ×2 (23:26→23:30)
[2016-08-21] MEDS ORDERED: SODIUM CHLORIDE 1 GM TABLET PO SCH
[2016-08-21] MEDS: SODIUM CHLORIDE 0.9% 1,000 ML IV SCH ×3 (03:04→23:10)
[2016-08-21] MEDS: CIPROFLOXACIN INJ 400 MG in PREMIX 1 EACH IV SCH ×2 (03:42→15:41)
[2016-08-21 05:36] LABS: Risk Ratio 4.7; VLDL CHOLESTEROL 19.4 MG/DL
[2016-08-21] MEDS: VANCOMYCIN INJ 1,500 MG in SODIUM CHLORIDE 0.9% 500 ML IV SCH ×2 (05:46→17:15)
[2016-08-21 06:14] LABS: Calcium 7.9 MG/DL (8.5-10.1); Magnesium 1.7 MG/DL (1.8-2.4); Osmolality,Calculated 273.2 MOS/KG (273-304); Potassium 3.9 MMOL/L (3.5-5.1)
[2016-08-21] MEDS ORDERED: SODIUM CHLORIDE 1 GM TABLET PO ONE (07:00)
[2016-08-21] MEDS ORDERED: glipiZIDE 10 MG TABLET PO SCH (07:30)
--- NOTE | 2016-08-21 08:14 | Physician Query Form ---
CLICK EDIT DOCUMENT TO SELECT QUERY ANSWER --> OK --> SIGN Shelby Trevino RN, CCDS Certified Clinical Molder Meat W) [phone] (f) [phone] [email or web address] PROVIDERS: Make your selection(s) from the choices in EACH section by typing an "x" and enter comments in the comment section. Please use your independent medical judgment in providing your response. This request does not imply that any particular answer is desired or expected. CLINICAL INDICATORS: (Providers should not edit this section) The medical record indicates that the patient was admitted with a wound infection, WBC of 17.5#, Temp 0f 101.1, pulse of 105#, RR of 20# and the patient was placed on Antibiotics. Please clarify the following: ( ) The above is an inherent, integral or routinely potential/expected occurrence of surgery (not a complication) ( ) The above was an inadvertent, unintended, iatrogenic, or unexpected occurrence of surgery (complication) (x) The above is a complication but not due to the surgery, specify cause: ( ) Other, please specify: ( ) Clinically unable to determine COMMENTS: The patient's initial surgery was for wet gangrene infection of toe - this is likely a result of recurrent infection and/or residual infection associated with the pathology of original diagnosis. Use of terms such as suspected, likely, or probable (associated with a specific diagnosis that is being evaluated, monitored, or treated as if it exists) are acceptable and can be restated in the discharge summary if not ruled out. MTDD
--- NOTE | 2016-08-21 08:15 | Physician Query Form ---
CLICK EDIT DOCUMENT TO SELECT QUERY ANSWER --> OK --> SIGN Shelby Trevino RN, CCDS Certified Clinical Stonemason W) [phone] (f) [phone] [email or web address]: Make your selection(s) from the choices in EACH section by typing an "x" and enter comments in the comment section. Please use your independent medical judgment in providing your response. This request does not imply that any particular answer is desired or expected. CLINICAL INDICATORS: (Providers should not edit this section) The medical record indicates that the patient was admitted with a wound infection, WBC of 17.5#, Temp 0f 101.1, pulse of 105#, RR of 20# and the patient was placed on Antibiotics. Please clarify which, if any, of the following is the etiology of the above symptoms and treatment rendered: ( ) Septic Shock (severe sepsis with hypotension) ( ) Severe Sepsis (sepsis with acute organ failure) - Please specify type acute organ failure: (x ) Sepsis due to a localized infection, please specify site: left foot ( ) Sepsis due to a device, implant or graft, please specify: ( ) Localized infection only, without systemic illness, please specify site: ( ) Bacteremia (abnormal lab finding only, does not indicate systemic illness) ( ) Other condition, please specify: ( ) Clinically unable to determine Criteria for Sepsis (SIRS due to an infection) should be based on 2 or more of the following being present: Temperature > 101F or < 96.8F WBC > 12,000 or < 4,000, or > 10% bands Tachycardia HR > 90 beats/minute Tachypnea RR > 20 breaths/minute or PaCO2 > 32mmHg Lactate level > 2.0 mmol/L (>4 is equivalent to severe sepsis) Altered Mental Status Mottling of skin or prolonged capillary refill Non-diabetic hyperglycemia (blood sugar >120 mg/dl) Other evidence of acute organ failure associated with sepsis ( severe sepsis) COMMENTS: Use of terms such as suspected, likely, or probable (associated with a specific diagnosis that is being evaluated, monitored, or treated as if it exists) are acceptable and can be restated in the discharge summary if not ruled out. MTDD
[2016-08-21] MEDS ORDERED: LISINOPRIL 5 MG TABLET PO SCH (09:00)
[2016-08-21] MEDS ORDERED: BUPIVACAINE 0.25% 50 ML VIAL ONE (09:14)
[2016-08-21] MEDS ORDERED: LIDOCAINE 2% 5 ML VIAL ONE (09:26)
[2016-08-21] MEDS ORDERED: PROPOFOL 200 MG/20 ML VIAL IV ONE (09:26)
[2016-08-21] MEDS: LISINOPRIL 20 MG TABLET PO SCH ×2 (09:39→11:38)
[2016-08-21] MEDS: amLODIPine 10 MG TABLET PO SCH ×2 (09:39→11:38)
[2016-08-21] MEDS: PANTOPRAZOLE 40 MG TABLET PO SCH ×2 (09:39→11:38)
[2016-08-21] MEDS: INSULIN REGULAR 100 UNIT/ML SUBCUT SCH ×4 (09:39→21:10)
[2016-08-21] MEDS ORDERED: MIDAZOLAM 2 MG/2 ML VIAL ONE (10:18)
[2016-08-21] MEDS ORDERED: fentaNYL 100 MCG/2 ML VIAL ONE ×2 (10:18)
--- NOTE | 2016-08-21 10:19 | Operative Note ---
Date of procedure: 08/21/16 Pre-op diagnosis: Cellulitis and necrosis left foot wound Post-op diagnosis: same Procedure: Excisional debridement of skin subcutaneous tissue fascia and bone left foot 3 x 5 cm Findings and technique: After informed consent was obtained patient was brought to the operating room and placed in supine position. After IV sedation was administered the patient's left foot was prepped and draped in usual sterile fashion. Local anesthesia was infiltrated and the plantar fat appeared to be necrotic. This was cultured. This fat was debrided back to the end of the metatarsal. Infection appeared to track along the periosteum and fascia overlying the metatarsal and the end of the cut metatarsal appeared to be soft and spongy consistent with osteomyelitis. Incision was made over the lateral aspect of the foot tracking over the course of the fifth metatarsal and this was dissected back about 2 cm and transected with a bone cutter. Fascia lateral to this was excised away as well sharply. The wound was closely irrigated and packed open with iodoform gauze and a bulky dressing applied. Anesthesia: MAC, local Surgeon / Physician: Peterson Baez III. Estimated blood loss: other (50 mL) Specimens: other (Cultures) Condition: stable Disposition: PACU Results - Labs CBC & BMP: 08/20/16 15:11 08/21/16 04:07 Discharge Plan - Discharge Medications No Action HYDROcodone/ACETAMIN 7.5-325 [[place] 7.5-325] 1 tablet PO Q4H PRN #30 tablet PRN Reason: Pain Moderate To Severe (4-10) Lisinopril [Prinivil] 5 mg PO DAILY #30 tablet glipiZIDE [Glucotrol] 10 mg PO AC BREAKFAST #30 tablet amLODIPine [Norvasc] 10 mg PO DAILY #30 tablet - Follow Up or Referral - Forms/Instructions
--- NOTE | 2016-08-21 11:32 | Hospitalist Progress Note ---
Assessment and Plan (1) DM2 (diabetes mellitus, type 2) Status: Chronic Assessment and plan: Patient has had consistent poor control with the use of oral hypoglycemic agents. 08/21/2016, patient was initiated on long-acting evening insulin therapy. We have discontinued his oral hypoglycemic as an effective and anticipate progression in his insulin dose during his hospital stay. Current Visit: No Qualifiers: Diabetes mellitus complication status: with neurologic complications Diabetes mellitus complication detail: with polyneuropathy Diabetes mellitus hydro station operator insulin use: without intermediate use Qualified Code(s): E11.42 - Type 2 diabetes mellitus with diabetic polyneuropathy (2) Wound infection after surgery Status: Acute Assessment and plan: July 25 transmetatarsal amputation of the fifth toe with wound site infection developing following discharge with debridement August 21 Current Visit: Yes (3) Hypertension Status: Chronic Assessment and plan: He appears to be responding to the combination of JAZMIN inhibitor and calcium channel ilana currently being utilized. Further adjustments may be necessary as he recovers from surgery. Current Visit: Yes Hospitalist: Subjective Interval history: 35-year-old male diabetic admitted on 25 July undergoing transmetatarsal amputation of left fifth toe. Wound cultures done at that time were positive for Proteus mirabilis, enterococcus raffinosis, and Bacteroides species. Patient was discharged on a course of Levaquin (sensitivity was determined only for the Proteus mirabilis). He developed changes of infection involving the previous surgical site and earlier today underwent a debridement of the area. The patient is a diabetic with extremely poor control on oral agents. He reports compliance but was admitted with continuing elevation of blood sugar and a hemoglobin A1c of 13.5. Last evening he received his first dose of long- acting insulin following consultation. During his last hospitalization he had significant elevation of systolic and diastolic blood pressure which is moderated on this admission with resumption of his lisinopril and amlodipine. He is awake and alert postoperatively dressing is dry. Exam - Constitutional Vitals: Period Temp Pulse Resp BP Sys/Vogt Pulse Ox Last 24 Hr 98.3 F-101.1 F 90-105 16-20 130-163/84-95 92-98 General appearance: over weight - Respiratory Respiratory exam: Present: clear to auscultation bilaterally. Absent: rales, rhonchi, wheezes - Cardiovascular Cardiovascular exam: Present: regular rate and rhythm - GI/Abdominal GI/Abdominal exam: Present: normal bowel sounds. Absent: distended, tenderness - Extremities Exam Extremities exam: Present: other (Surgical dressing in place on left foot.). Absent: edema - Neurological Exam Neurological exam: Present: alert, oriented X3 Results - Labs CBC & BMP: 08/20/16 15:11 08/21/16 04:07 Labs: Hemoglobin A1c 13.5 Magnesium 1.7 - Diagnostic Findings Procedure: Chest x-ray: image reviewed by me (Normal heart size clear lung [place]) Quality Measures - VTE Contraindication to Pharmacological VTE Prophylaxis: High Risk of Bleeding
[2016-08-21] MEDS: INSULIN GLARGINE 100 UNIT/ML SUBCUT SCH (21:11)
[2016-08-22] MEDS: CIPROFLOXACIN INJ 400 MG in PREMIX 1 EACH IV SCH ×2 (03:08→17:06)
[2016-08-22 04:40] LABS: Basophils % 0.2 % (0.0-0.8); Eosinophils # 0.1 10*3/uL (0.0-0.87); Eosinophils % 0.4 % (0.00-10.9); Hematocrit 29.4 VOL% (42.0-52.0); Hemoglobin 9.5 GM/DL (14.0-18.0); Immature Granulocytes % 0.6 %; Immature Granulocytes Absolute 0.09 #; Lymphocytes # 1.9 10*3/uL (1.4-4.0); Lymphocytes % 11.6 % (21.2-54.2); Mean Corpuscular HGB Conc 32.3 GM/DL (32-36); Mean Corpuscular Hemoglobin 26 PG (27-34); Mean Corpuscular Volume 78.8 FL (87-102); Mean Platelet Volume 10.1 FL (9.6-12.0); Monocytes # 1.3 10*3/uL (0.11-0.8); Monocytes % 7.8 % (1.7-12.7); Neutrophils # 12.9 10*3/uL (1.4-7.4); Neutrophils % 79.4 % (38.7-73.9); Platelet Count 382 T/CUMM (130-400); Red Blood Count 3.73 MC/CUMM (3.8-5.5); Red Cell Distribution Width 13.3 % (9.3-17.3); White Blood Count 16.2 T/CUMM (4-12)
[2016-08-22] MEDS: VANCOMYCIN INJ 1,500 MG in SODIUM CHLORIDE 0.9% 500 ML IV SCH ×2 (05:06→19:45)
[2016-08-22] MEDS: SODIUM CHLORIDE 0.9% 1,000 ML IV SCH ×3 (05:08→21:21)
[2016-08-22 05:13] LABS: Calcium 7.6 MG/DL (8.5-10.1); Potassium 3.7 MMOL/L (3.5-5.1)
--- NOTE | 2016-08-22 06:59 | Anesthesia Post-Op ---
Anesthesia Post OP - Post Ansesthetic Evaluation Patient seen in post op: Yes Resp: within normal limits CV: within normal limits Mental: within normal limits Temp: within normal limits Aazo-Vm-Iuecebgki: within normal limits Nausea and Vomiting: within normal limits Pain: within normal limits
[2016-08-22] MEDS: INSULIN REGULAR 100 UNIT/ML SUBCUT SCH ×4 (07:58→21:20)
--- NOTE | 2016-08-22 08:15 | Event Note ---
He feels better. He has less pain in his foot. He is afebrile but still has an elevated white blood cell count. I did extensive debridement of bone and fascia of his lateral foot toe amputation site done originally by Dr. Gaitan. We will continue with dressing changes and antibiotics. Cultures at surgery are pending.
[2016-08-22] MEDS: amLODIPine 10 MG TABLET PO SCH (08:57)
[2016-08-22] MEDS: PANTOPRAZOLE 40 MG TABLET PO SCH (08:57)
[2016-08-22] MEDS: LISINOPRIL 20 MG TABLET PO SCH (09:05)
--- NOTE | 2016-08-22 12:39 | Hospitalist Progress Note ---
Assessment and Plan (1) Accelerated hypertension Status: Acute Assessment and plan: At home patient is uses nightly lisinopril 5 mg daily; I believe this in antihypertensive can be boosted up to 20 mg daily. He is on amlodipine 10 mg daily we should be continued. Here in the hospital we will supplement these blood pressure medication with IV hydralazine 10 mg IV every 6 hours as needed for systolic blood pressure greater than 180. I will give him too much IV fluids with normal saline that is well with driving high blood pressure. Current Visit: Yes (2) Diabetes mellitus type 2, uncontrolled Status: Acute Assessment and plan: The patient is on the correlation of the. This diabetes is not well controlled. I will check an A1c on this admission. Noticed that this gentleman is not using insulin at home. He will be with the wire for the healing of the wound post surgery to control the blood sugar below 150 at all times. Output him on a basal insulin with the use of Lantus insulin 12 units at bedtime and use the intermediate sliding scale insulin here in the hospital. Also check lipid panel in the morning with a fasting blood draw. Patient will need a dietitian consultation because he says he has never seen one; these for dietary education for diabetes. Current Visit: Yes Qualifiers: Diabetes mellitus complication status: with hyperglycemia Diabetes mellitus retirement insulin use: without terminal gauger supervisor use Qualified Code(s): E11.65 - Type 2 diabetes mellitus with hyperglycemia (3) Osteomyelitis Status: Acute Assessment and plan: Description of surgical note is that there was debridement of both fossa and bone. It is positive probe to bone in this diabetic foot infection this gentleman has osteomyelitis. This gentleman should be on antibiotic directed to 6 weeks at least. This is a level B recommendation. Antibiogram on the foot isolate is still pending at this time will therefore leave antibiotic disease. Probably a minimal need of oral ciprofloxacin at this time. This is MRSA and vancomycin needs the help of rifampin. Possible gram-positive isolated is a different species altogether including group B strep given the fact that the patient is a diabetic. Current Visit: No Hospitalist: Subjective Interval history: Mr. Marquez has been seen interviewed and examined. Denies any acute complaints at this time. Her mother admitted to the hospital infected diabetic foot. Status post debridement of both fascia and bone. With those bone debridement and therefore osteomyelitis should be expected. No definition of surgical margins at this time. Gentleman therefore should be treated as osteomyelitis for at least 6 weeks. Is currently on vancomycin and ciprofloxacin however the cultures are growing gram-positive cocci. This is MRSA and vancomycin need the help of rifampin this is group B strep as the patient is a diabetic than the penicillin should be the antibiotic of choice. Microbiologic report with antibiogram is pending at this time Exam - Constitutional Vitals: Period Temp Pulse Resp BP Sys/Vogt Pulse Ox Last 24 Hr 97.8 F-99.2 F 90-102 18-20 139-168/82-113 91-96 General appearance: no acute distress, over weight - Head Head exam: Present: normocephalic, atraumatic - Eye Eye exam: Present: EOMI Pupils: Present: KAREN - ENT ENT exam: Present: normal exam - Respiratory Respiratory exam: Present: clear to auscultation bilaterally - Cardiovascular Cardiovascular exam: Present: regular rate and rhythm - GI/Abdominal GI/Abdominal exam: Present: normal bowel sounds, soft - Extremities Exam Extremities exam: Present: full ROM, other (Wound is dressed there is no advancing cellulitis left lower external) - Back Exam Back exam: Present: normal inspection - Neurological Exam Neurological exam: Present: alert, oriented X3, CN II-XII intact - Skin Skin exam: Present: normal color, warm, dry, other (Diabetic foot ulcer on the left side) Results - Labs CBC & BMP: 08/22/16 03:37 08/22/16 03:37 Lab Results: I have reviewed the past 24 hour labs - EKG EKG results: sinus rhythm (Check sed rate) Quality Measures - VTE Contraindication to Pharmacological VTE Prophylaxis: High Risk of Bleeding
--- NOTE | 2016-08-22 14:58 | Event Note ---
Dressing changed - large defect noted but remaining tissue is pink and appears healthy without malodor or significant purulent drainage noted. Wound redressed and wound care orders placed on chart. Pt reports mild knee pain with WB. Pt reports persistent right knee pain. Noted mild edema, hyperemia and 1+ pitting edema to RLE. Tendernerness over medial aspect of knee. No pain with PROM or AROM of knee. A/p Stable POD #1. Wound care orders placed on chart. RLE edema: obtain venous duplex r/o DVT Right knee pain: check knee XR - further eval to r/o septic arthritis may be warranted if leukocytosis persists, knee pain persists, and/or effusion present.
--- NOTE | 2016-08-22 16:28 | XRay Report ---
XR knee 2V RT Clinical Information: knee pain/edema Comparison: None available Findings: There is no acute fracture or evidence of dislocation. There is no joint effusion. No suspicious osseous or soft tissue lesions are identified. Visualized knee joint space appears relatively preserved. Impression: No acute findings. PROCEDURE INTERPRETED AT [facility] DEPARTMENT OF RADIOLOGY Final Report Signed by: Nitin Riley
--- NOTE | 2016-08-22 16:29 | Ultrasound Report ---
Indication: Right lower extremity pitting edema Duplex scan of the right lower extremity veins Technique: Duplex scan of the right lower extremity veins using B-mode/grayscale imaging and Doppler spectral analysis and color flow Findings: Major venous structures of the right lower extremity demonstrate a normal course and caliber. There is no evidence of deep vein thrombosis. No abnormal intrinsic echogenic lesions are demonstrated in the scanned blood vessels. Veins demonstrate good compressibility with normal color flow study and spectral analysis. There is an incidental prominent right inguinal lymph node visualized with maximum dimensions of 4.5 cm. Impression: Unremarkable duplex imaging of the right lower extremity veins. No evidence of DVT Incidental enlarged right inguinal lymph node is indeterminate but may be reactive. PROCEDURE INTERPRETED AT [facility] DEPARTMENT OF RADIOLOGY Final Report Signed by: Nitin Riley
[2016-08-22] MEDS: INSULIN GLARGINE 100 UNIT/ML SUBCUT SCH (21:20)
[2016-08-23] MEDS: SODIUM CHLORIDE 0.9% 1,000 ML IV SCH ×2 (00:23→05:56)
[2016-08-23] MEDS: CIPROFLOXACIN INJ 400 MG in PREMIX 1 EACH IV SCH (04:31)
[2016-08-23] MEDS: VANCOMYCIN INJ 1,500 MG in SODIUM CHLORIDE 0.9% 500 ML IV SCH ×2 (05:55→17:07)
[2016-08-23 06:12] LABS: Basophils % 0.1 % (0.0-0.8); Eosinophils # 0.1 10*3/uL (0.0-0.87); Eosinophils % 0.7 % (0.00-10.9); Hematocrit 30.1 VOL% (42.0-52.0); Hemoglobin 9.9 GM/DL (14.0-18.0); Immature Granulocytes % 0.5 %; Immature Granulocytes Absolute 0.07 #; Lymphocytes # 1.6 10*3/uL (1.4-4.0); Lymphocytes % 10.1 % (21.2-54.2); Mean Corpuscular HGB Conc 32.9 GM/DL (32-36); Mean Corpuscular Hemoglobin 26 PG (27-34); Mean Platelet Volume 10.3 FL (9.6-12.0); Monocytes # 1.1 10*3/uL (0.11-0.8); Monocytes % 6.9 % (1.7-12.7); Neutrophils # 12.7 10*3/uL (1.4-7.4); Neutrophils % 81.7 % (38.7-73.9); Platelet Count 423 T/CUMM (130-400); Red Blood Count 3.86 MC/CUMM (3.8-5.5); Red Cell Distribution Width 13.4 % (9.3-17.3); White Blood Count 15.5 T/CUMM (4-12)
[2016-08-23] MEDS: amLODIPine 10 MG TABLET PO SCH (08:45)
[2016-08-23] MEDS: LISINOPRIL 20 MG TABLET PO SCH (08:45)
[2016-08-23] MEDS: PANTOPRAZOLE 40 MG TABLET PO SCH (08:45)
[2016-08-23] MEDS: INSULIN REGULAR 100 UNIT/ML SUBCUT SCH ×4 (08:45→20:42)
--- NOTE | 2016-08-23 10:44 | Event Note ---
08/23/2016 Patient is afebrile and wound care is progressing at this time. Cultures are growing 2 organisms but we do not have any sensitivities out yet. Will maintain present wound care and switch him to p.o. antibiotics once we have the final on the cultures.
--- NOTE | 2016-08-23 11:10 | Hospitalist Progress Note ---
Assessment and Plan (1) Accelerated hypertension Status: Acute Assessment and plan: At home patient is uses nightly lisinopril 5 mg daily; I believe this in antihypertensive can be boosted up to 20 mg daily. He is on amlodipine 10 mg daily we should be continued. Here in the hospital we will supplement these blood pressure medication with IV hydralazine 10 mg IV every 6 hours as needed for systolic blood pressure greater than 180. Discontinue IV fluid Current Visit: Yes (2) Diabetes mellitus type 2, uncontrolled Status: Acute Assessment and plan: The patient is on the correlation of the. This diabetes is not well controlled. I will check an A1c on this admission. Noticed that this gentleman is not using insulin at home. He will be with the wire for the healing of the wound post surgery to control the blood sugar below 150 at all times. Output him on a basal insulin with the use of Lantus insulin 12 units at bedtime and use the intermediate sliding scale insulin here in the hospital. Also check lipid panel in the morning with a fasting blood draw. Patient will need a dietitian consultation because he says he has never seen one; these for dietary education for diabetes. Current Visit: Yes Qualifiers: Diabetes mellitus complication status: with hyperglycemia Diabetes mellitus long term care administrator insulin use: without long term care administrator use Qualified Code(s): E11.65 - Type 2 diabetes mellitus with hyperglycemia (3) Osteomyelitis Status: Acute Assessment and plan: I discussed with the laboratory this morning. Organism #1 from the OR specimen is methicillin-resistant staph aureus in his room #2 is yet to be fully defined by this suggestion of gamma strep. Patient should be on vancomycin maintain vancomycin trough levels around 15 mcg/mL. Add rifampin 600 mg p.o. daily. Recommending duration of treatment of at least 6 weeks. Again this is a level B recommendation. Patient should be followed clinically. Obtain case management consultation with intention of arranging for home antibiotics. Will need PICC line for antibiotic. Current Visit: No Hospitalist: Subjective Interval history: Patient has been seen interviewed and examined and started no complaints. 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 Has undergone debridement of the fascia soft tissue and bone. 2 organisms isolated on the operating room specimen; one is methicillin-resistant staph aureus the other one may be a gamma strep but finally is not out yet. No gram-negative aerobes. He is currently on vancomycin and Cipro. He do well with vancomycin and adding rifampin on it for the MRSA synergistic treatment. He has no absolute contraindication of using rifampin. Ciprofloxacin contribution is marginal at this point. I will therefore discontinue it. Exam - Constitutional Vitals: Period Temp Pulse Resp BP Sys/Vogt Pulse Ox Last 24 Hr 98.2 F-98.7 F 90-104 18-20 157-190/92-105 90-95 General appearance: over weight - Head Head exam: Present: normocephalic - Eye Pupils: Present: KAREN - ENT ENT exam: Present: normal exam - Neck Neck exam: Present: normal inspection - Respiratory Respiratory exam: Present: clear to auscultation bilaterally - Cardiovascular Cardiovascular exam: Present: regular rate and rhythm - GI/Abdominal GI/Abdominal exam: Present: normal bowel sounds, soft - Extremities Exam Extremities exam: Present: full ROM - Back Exam Back exam: Present: normal inspection - Neurological Exam Neurological exam: Present: alert, oriented X3, CN II-XII intact - Psychiatric Psychiatric exam: Present: normal affect, normal mood - Skin Skin exam: Present: normal color, warm, dry Results - Labs CBC & BMP: 08/23/16 04:40 08/22/16 03:37 Lab Results: I have reviewed the past 24 hour labs (Noted leukocytosis) Quality Measures - VTE Contraindication to Pharmacological VTE Prophylaxis: High Risk of Bleeding
[2016-08-23] MEDS: hydrALAZINE 20 MG/1 ML VIAL IV PRN ×2 (12:41→19:36)
[2016-08-23] MEDS: INSULIN GLARGINE 100 UNIT/ML SUBCUT SCH (20:43)
[2016-08-24] MEDS: hydrALAZINE 20 MG/1 ML VIAL IV PRN (04:51)
[2016-08-24] MEDS: VANCOMYCIN INJ 1,500 MG in SODIUM CHLORIDE 0.9% 500 ML IV SCH ×2 (04:51→17:12)
[2016-08-24 05:33] LABS: Basophils % 0.1 % (0.0-0.8); Eosinophils # 0.1 10*3/uL (0.0-0.87); Eosinophils % 0.5 % (0.00-10.9); Hematocrit 32.7 VOL% (42.0-52.0); Hemoglobin 10.8 GM/DL (14.0-18.0); Immature Granulocytes % 0.6 %; Immature Granulocytes Absolute 0.09 #; Lymphocytes % 13.3 % (21.2-54.2); Mean Corpuscular Hemoglobin 26 PG (27-34); Mean Corpuscular Volume 77.3 FL (87-102); Mean Platelet Volume 9.9 FL (9.6-12.0); Monocytes # 1.2 10*3/uL (0.11-0.8); Neutrophils # 11.7 10*3/uL (1.4-7.4); Neutrophils % 77.5 % (38.7-73.9); Platelet Count 504 T/CUMM (130-400); Red Blood Count 4.23 MC/CUMM (3.8-5.5); Red Cell Distribution Width 13.5 % (9.3-17.3); White Blood Count 15.1 T/CUMM (4-12)
[2016-08-24] MEDS ORDERED: RIFAMPIN 300 MG CAPSULE PO SCH (09:00)
[2016-08-24] MEDS: INSULIN REGULAR 100 UNIT/ML SUBCUT SCH ×4 (09:05→21:26)
[2016-08-24] MEDS: amLODIPine 10 MG TABLET PO SCH (09:05)
[2016-08-24] MEDS: PANTOPRAZOLE 40 MG TABLET PO SCH (09:06)
[2016-08-24] MEDS: LISINOPRIL 20 MG TABLET PO SCH (09:06)
--- NOTE | 2016-08-24 09:29 | Event Note ---
08/24/2016. Patient is doing well without problems at this time Wound looks clean and dry without any sign of any infection or swelling. We will go ahead and modify his antibiotics to get him set up for possible Augmentin Bactrim whenever he leaves. Good to probably run the vancomycin today and send him home tomorrow set him up with [facility] for wound care once he leaves here.
[2016-08-24] MEDS ORDERED: BISACODYL 5 MG TABLET PO PRN (09:39)
[2016-08-24] MEDS: AMOXICILLIN/CLAV 500 MG TABLET PO SCH ×2 (11:20→18:15)
--- NOTE | 2016-08-24 12:08 | Hospitalist Progress Note ---
Assessment and Plan (1) Accelerated hypertension Status: Acute Assessment and plan: At home patient is uses nightly lisinopril 5 mg daily; I believe this in antihypertensive can be boosted up to 20 mg daily. He is on amlodipine 10 mg daily we should be continued. Here in the hospital we will supplement these blood pressure medication with IV hydralazine 10 mg IV every 6 hours as needed for systolic blood pressure greater than 180. Discontinued IV fluid Current Visit: Yes (2) Diabetes mellitus type 2, uncontrolled Status: Acute Assessment and plan: The patient is on the correlation of the. This diabetes is not well controlled. I will check an A1c on this admission. Noticed that this gentleman is not using insulin at home. He will be with the wire for the healing of the wound post surgery to control the blood sugar below 150 at all times. Output him on a basal insulin with the use of Lantus insulin 12 units at bedtime and use the intermediate sliding scale insulin here in the hospital. Also check lipid panel in the morning with a fasting blood draw. Patient will need a dietitian consultation because he says he has never seen one; these for dietary education for diabetes. Current Visit: Yes Qualifiers: Diabetes mellitus complication status: with hyperglycemia Diabetes mellitus termite exterminator insulin use: without termite exterminator use Qualified Code(s): E11.65 - Type 2 diabetes mellitus with hyperglycemia (3) Osteomyelitis Status: Acute Assessment and plan: I discussed with the laboratory this morning. Organism #1 from the OR specimen is methicillin-resistant staph aureus in his room #2 is enterococcus raffinosus Patient is on vancomycin maintain vancomycin trough levels around 15 mcg/mL. Add rifampin 600 mg p.o. daily. Recommending duration of treatment of at least 6 weeks. This is a level B recommendation. Patient should be followed clinically. Obtain case management consultation with intention of arranging for home antibiotics. Will need PICC line for antibiotic. Current Visit: No Hospitalist: Subjective Interval history: Mr. Marquez has been seen interviewed and examined and chart has been reviewed. He denies any acute pain at this time. Wound care has been around see his leg. Minimal admitted to the hospital diabetic foot infection status post debridement of soft tissue fashions and bone on the left foot. He is on IV antibiotics and my recommendation would be to send him home with IV antibiotics to cover for the suspect organisms. He does have Staphylococcus aureus was methicillin resistance and the second gram positive cocci which is a enterococcus raffinosus. Vancomycin IV will suffice to treat both. Target trough levels of 15 mcg/mL. Addition of rifampin as an adjunct to vancomycin for management of MRSA is going be necessary. This medication was started yesterday; it will be given oral. Duration of treatment should be at least 6 weeks and moderate monitoring the patient closely. They should be biweekly CBCs sed rate BMP. I am informed that this patient can be followed at the [facility] with IV antibiotics can be given. Order for PICC line placement tomorrow is already on the chart. Exam - Constitutional Vitals: Period Temp Pulse Resp BP Sys/Vogt Pulse Ox Last 24 Hr 98.1 F-99.3 F 100-107 17-24 155-194/78-107 91-95 General appearance: over weight - Head Head exam: Present: normocephalic, atraumatic - Eye Eye exam: Present: EOMI Pupils: Present: KAREN - ENT ENT exam: Present: normal exam - Neck Neck exam: Present: normal inspection - Respiratory Respiratory exam: Present: clear to auscultation bilaterally - Cardiovascular Cardiovascular exam: Present: regular rate and rhythm - GI/Abdominal GI/Abdominal exam: Present: normal bowel sounds, soft, other (Good oral intake) - Extremities Exam Extremities exam: Present: full ROM - Back Exam Back exam: Present: normal inspection - Neurological Exam Neurological exam: Present: alert, oriented X3, CN II-XII intact - Psychiatric Psychiatric exam: Present: normal affect, normal mood - Skin Skin exam: Present: normal color, warm, dry Results - Labs CBC & BMP: 08/24/16 04:36 08/22/16 03:37 Lab Results: I have reviewed the past 24 hour labs Quality Measures - VTE Contraindication to Pharmacological VTE Prophylaxis: High Risk of Bleeding
[2016-08-24] MEDS ORDERED: SULFAMETHOX/TRIMETHOPRIM 800-160 MG TABLET PO SCH (21:00)
[2016-08-24] MEDS: INSULIN GLARGINE 100 UNIT/ML SUBCUT SCH (21:26)
[2016-08-25] MEDS: AMOXICILLIN/CLAV 500 MG TABLET PO SCH ×3 (01:03→18:53)
[2016-08-25] MEDS: VANCOMYCIN INJ 1,500 MG in SODIUM CHLORIDE 0.9% 500 ML IV SCH ×2 (05:11→18:53)
[2016-08-25 06:40] LABS: Basophils % 0.1 % (0.0-0.8); Eosinophils # 0.1 10*3/uL (0.0-0.87); Eosinophils % 0.5 % (0.00-10.9); Hematocrit 30.5 VOL% (42.0-52.0); Immature Granulocytes % 0.6 %; Immature Granulocytes Absolute 0.09 #; Lymphocytes # 1.7 10*3/uL (1.4-4.0); Lymphocytes % 11.4 % (21.2-54.2); Mean Corpuscular HGB Conc 32.8 GM/DL (32-36); Mean Corpuscular Hemoglobin 25 PG (27-34); Mean Platelet Volume 9.4 FL (9.6-12.0); Monocytes # 1.4 10*3/uL (0.11-0.8); Neutrophils # 11.8 10*3/uL (1.4-7.4); Neutrophils % 78.4 % (38.7-73.9); Platelet Count 518 T/CUMM (130-400); Red Blood Count 3.96 MC/CUMM (3.8-5.5); Red Cell Distribution Width 13.8 % (9.3-17.3); White Blood Count 15.1 T/CUMM (4-12)
[2016-08-25] MEDS: INSULIN REGULAR 100 UNIT/ML SUBCUT SCH ×4 (08:29→21:02)
[2016-08-25] MEDS: PANTOPRAZOLE 40 MG TABLET PO SCH (08:53)
[2016-08-25] MEDS: LISINOPRIL 20 MG TABLET PO SCH (08:53)
[2016-08-25] MEDS: amLODIPine 10 MG TABLET PO SCH (08:53)
--- NOTE | 2016-08-25 08:57 | Event Note ---
He feels well. He is not having fever. His wound looks good but there are still some erythema over the lateral aspect of his foot. His cultures are growing MRSA and enterococcus. We will continue his vancomycin for now.
--- NOTE | 2016-08-25 14:17 | Hospitalist Progress Note ---
Assessment and Plan (1) Accelerated hypertension Status: Acute Assessment and plan: At home patient is uses nightly lisinopril 5 mg daily; I believe this in antihypertensive can be boosted up to 20 mg daily. He is on amlodipine 10 mg daily we should be continued. Here in the hospital we will supplement these blood pressure medication with IV hydralazine 10 mg IV every 6 hours as needed for systolic blood pressure greater than 180. Discontinued IV fluid Current Visit: Yes (2) Diabetes mellitus type 2, uncontrolled Status: Acute Assessment and plan: The patient is on the correlation of the. This diabetes is not well controlled. I will check an A1c on this admission. Noticed that this gentleman is not using insulin at home. He needs to control the blood sugar below 150 at all times; put him on a basal insulin with the use of Lantus insulin 20 units at bedtime and use the intermediate sliding scale insulin here in the hospital. Current Visit: Yes Qualifiers: Diabetes mellitus complication status: with hyperglycemia Diabetes mellitus environmental lead insulin use: without prison use Qualified Code(s): E11.65 - Type 2 diabetes mellitus with hyperglycemia (3) Osteomyelitis Status: Acute Assessment and plan: I discussed with the laboratory this morning. Organism #1 from the OR specimen is methicillin-resistant staph aureus in his room #2 is enterococcus raffinosus Patient is on vancomycin maintain vancomycin trough levels around 15 mcg/mL. Add rifampin 600 mg p.o. daily. Recommending duration of treatment of at least 6 weeks. This is a level B recommendation. Patient should be followed clinically. Obtain case management consultation with intention of arranging for home antibiotics. Will need PICC line for antibiotic. Current Visit: No Hospitalist: Subjective Interval history: Patient has been seen interviewed and examined and chart has been reviewed. Is not offering any new complaints at this time. The wound was dressed back again by definition from the surgical assessment the wound looks clean and symptom healing. There is residual redness over the lateral aspect of the wound. Wound cultures from the operating room was going MRSA and enterococcus species. Have him on vancomycin with intention of sending him home with IV antibiotics given the fact that description of debridement done in all involves fascia and bone. This bone was accessible then osteomyelitis should be an issue, and less all infected site were removed and surgical margins were clean. Exam - Constitutional Vitals: Period Temp Pulse Resp BP Sys/Vogt Pulse Ox Last 24 Hr 97.6 F-100.0 F 94-103 16-22 149-189/82-99 91-98 General appearance: over weight - Head Head exam: Present: normocephalic, atraumatic - Eye Eye exam: Present: EOMI Pupils: Present: KAREN - ENT ENT exam: Present: normal exam - Neck Neck exam: Present: normal inspection - Respiratory Respiratory exam: Present: clear to auscultation bilaterally - Cardiovascular Cardiovascular exam: Present: regular rate and rhythm - GI/Abdominal GI/Abdominal exam: Present: normal bowel sounds, soft - Extremities Exam Extremities exam: Present: full ROM, other (Wound was dressed) - Back Exam Back exam: Present: normal inspection - Neurological Exam Neurological exam: Present: alert, oriented X3, CN II-XII intact - Psychiatric Psychiatric exam: Present: normal affect, normal mood - Skin Skin exam: Present: normal color, warm, dry Results - Labs CBC & BMP: 08/25/16 06:12 08/22/16 03:37 Lab Results: I have reviewed the past 24 hour labs (Noted white count of 15,100 is high to 29) Quality Measures - VTE Contraindication to Pharmacological VTE Prophylaxis: High Risk of Bleeding
[2016-08-25] MEDS: INSULIN GLARGINE 100 UNIT/ML SUBCUT SCH (21:02)
[2016-08-25] MEDS: hydrALAZINE 20 MG/1 ML VIAL IV PRN (22:49)
[2016-08-26] MEDS: AMOXICILLIN/CLAV 500 MG TABLET PO SCH ×2 (01:34→08:31)
[2016-08-26] MEDS: VANCOMYCIN INJ 1,500 MG in SODIUM CHLORIDE 0.9% 500 ML IV SCH ×2 (04:50→17:28)
[2016-08-26 05:59] LABS: Basophils % 0.3 % (0.0-0.8); Eosinophils # 0.1 10*3/uL (0.0-0.87); Eosinophils % 0.8 % (0.00-10.9); Hemoglobin 9.7 GM/DL (14.0-18.0); Immature Granulocytes % 0.5 %; Immature Granulocytes Absolute 0.08 #; Lymphocytes # 1.5 10*3/uL (1.4-4.0); Lymphocytes % 10.3 % (21.2-54.2); Mean Corpuscular HGB Conc 32.3 GM/DL (32-36); Mean Corpuscular Hemoglobin 26 PG (27-34); Mean Corpuscular Volume 79.6 FL (87-102); Mean Platelet Volume 9.2 FL (9.6-12.0); Monocytes # 1.6 10*3/uL (0.11-0.8); Monocytes % 10.5 % (1.7-12.7); Neutrophils # 11.5 10*3/uL (1.4-7.4); Neutrophils % 77.6 % (38.7-73.9); Platelet Count 504 T/CUMM (130-400); Red Blood Count 3.77 MC/CUMM (3.8-5.5); Red Cell Distribution Width 13.9 % (9.3-17.3); White Blood Count 14.8 T/CUMM (4-12)
[2016-08-26] MEDS: INSULIN REGULAR 100 UNIT/ML SUBCUT SCH ×4 (08:03→20:37)
[2016-08-26] MEDS: PANTOPRAZOLE 40 MG TABLET PO SCH (08:31)
[2016-08-26] MEDS: LISINOPRIL 20 MG TABLET PO SCH (08:31)
[2016-08-26] MEDS: amLODIPine 10 MG TABLET PO SCH (08:31)
--- NOTE | 2016-08-26 09:45 | Infectious Disease Consult ---
Assessment and Plan (1) Diabetes mellitus type 2, uncontrolled Status: Acute Current Visit: Yes Qualifiers: Diabetes mellitus complication status: with hyperglycemia Diabetes mellitus manager intermediate insulin use: without manager intermediate use Qualified Code(s): E11.65 - Type 2 diabetes mellitus with hyperglycemia (2) Wound infection after surgery Status: Acute Assessment and plan: Polymicrobial infection with MRSA and enterococcus. There was cellulitis on admission reportedly. He had significant leukocytosis on admission and its unfortunate blood cultures were done then. Overall he seems he has improved but still there is some leukocytosis. Recommendations: 1. Agree with Augmentin but he but change dose to 875 mg twice daily 2. Agree with vancomycin while he is in the hospital; when he gets discharged this can be changed to doxycycline 3. Continue wound care 4. Because of mention of possible osteomyelitis I would treat the patient with antibiotics for 6 weeks. Would use Augmentin and doxycycline on discharge. Thank you very much for the consult. Will follow. Current Visit: Yes (3) Hypertension Status: Chronic Current Visit: Yes (4) Osteomyelitis Status: Acute Assessment and plan: Augmentin and doxycycline as noted above when the patient gets discharged. Check sed rate and C-reactive protein today. These can be used to monitor response to treatment. Current Visit: No (5) Right knee pain Status: Acute Assessment and plan: Not sure the cause of this, he does not seem to be the joint but most soft tissue if not the proximal head of the tibia. I am concerned that there is still erythema and hyperemia to the area even after he has been on antibiotics for almost a week. Recommendations: CT scan of the right knee with contrast to better evaluate this inflamed area. Discussed with neurosurgery ANNA Martinez. Current Visit: Yes History of Present Illness Chief complaint: Osteomyelitis History of present illness: Mr. Marquez is a 35 year old male Who had an amputation of left fifth toe about 2 months ago for diabetic foot infection. He was initially doing okay but more recently the wound got infected. He had up having to come in for debridement of that fifth toe amputation stump on 20 August. There was redness and drainage from the area. The patient said he had chills at home but no fever. Once concern to him with moist pain to the medial aspect of the right knee. That started last week and is aggravated by walking. Patient had wound culture done on admission which grew MRSA and enterococcus. Blood cultures were never drawn on admission. He has been on vancomycin and Augmentin. I am asked to assist with management. The patient is a diabetic for several years and admits that it has been uncontrolled with an A1c of 13% recently. Home Medications Medication Instructions Recorded Confirmed Type HYDROcodone/ACETAMIN 7.5-325 1 tablet PO Q4H PRN #30 tablet 07/28/16 08/20/16 Rx [[place] 7.5-325] Lisinopril [Prinivil] 5 mg PO DAILY #30 tablet 07/28/16 08/20/16 Rx amLODIPine [Norvasc] 10 mg PO DAILY #30 tablet 07/28/16 08/20/16 Rx glipiZIDE [Glucotrol] 10 mg PO AC BREAKFAST #30 tablet 07/28/16 08/20/16 Rx Allergies Allergy/AdvReac Type Severity Reaction Status Date / Time sulfamethoxazole Allergy Severe SHORTNESS Verified 08/24/16 21:05 [From Bactrim] OF BREATH trimethoprim [From Bactrim] Allergy Severe SHORTNESS Verified 08/24/16 21:05 OF BREATH 12 point system: reviewed and no additional remarkable complaints except as stated Medical,Surgical,& Family Hx - Medical History Cardio: History of: Hypertension HEENT: History of: Eye Problem (wear glasses) Endocrine: History of: Diabetes Mellitus (NIDDM) Musculoskeletal: History of: Musculoskeletal Problems (Osteomyelitis left foot) - Surgical History Orthopedic Surgeries: Surgical HX of;: Orthopedic Surgery (Left knee arthroscopy ; left 5th transmetatarsal amputation) - Family History Family History: Reports;: Family Heart Disease (maternal aunt and uncle) - Social History Smoking Status: Never smoker Frequency of Alcohol Use: None Type of Drug Use: None Infectious Disease Exam H&P - Constitutional Vitals: Vital Signs Temp Pulse Resp BP Pulse Ox 97.7 F 95 H 18 190/92 96 08/26/16 07:04 08/26/16 07:04 08/26/16 07:04 08/26/16 07:04 08/26/16 07:04 Intake and Output 08/25/16 08/26/16 08/26/16 23:59 07:59 15:59 Intake Total 500 / 500 600 / 600 Output Total 700 / 700 Balance 500 / 500 -100 / -100 Intake: IV 500 / 500 Vancomycin Inj 1,000 mg 500 / 500 In Ns 500 ml @ 250 mls/hr IV Q12H TRAN Rx#: [id number] Oral 600 / 600 Output: Urine 700 / 700 Other: Voiding Method Toilet Toilet # Voids 2 # Bowel Movements 0 Weight 104.417 kg Patient Weight 08/26/16 23:59 Weight 104.417 kg Exam: General: Patient relatively comfortable, obese HEENT: Mucous membranes pink and moist, anicteric acyanotic, PERRLA, no oral exudates, no Neck: Supple, no thyroid gland enlargement, no lymphadenopathy Respiratory system: Breath sounds vesicular, no crepitations or wheezes Cardiovascular: Normal S1 and S2, no murmurs appreciated Abdomen: Obese, normal bowel sounds, soft nontender throughout, no organomegaly or mass Genitourinary: No suprapubic pain or bladder distention Extremities: no edema, left fifth toe amputation stump noted with open wound and some serous drainage, minimal surrounding erythema; inferior medial aspect of right knee noted with mild to moderate erythema, significant hyperemia, mild tenderness, no discrete mass or swelling, full range of motion of the right knee Skin: No rash Reports - Labs CBC & BMP: 08/26/16 05:29 08/22/16 03:37 Labs: Laboratory Results - last 24 hr 08/25/16 08/25/16 08/25/16 11:04 16:22 20:02 WBC RBC Hgb Hct MCV MCH MCHC RDW Plt Count MPV Neut % (Auto) Lymph % (Auto) [place] % (Auto) Eos % (Auto) Baso % (Auto) Neut # (Auto) Lymph # (Auto) [place] # (Auto) Eos # (Auto) Baso # (Auto) Immature Gran % Nucleated RBC % Immature Gran # Nucleated RBCs # POC Glucose 194 H 230 H 227 H 08/26/16 08/26/16 05:29 07:07 WBC 14.8 H RBC 3.77 L Hgb 9.7 L Hct 30.0 L MCV 79.6 L MCH 26 L MCHC 32.3 RDW 13.9 Plt Count 504 H MPV 9.2 L Neut % (Auto) 77.6 H Lymph % (Auto) 10.[address] [place] % (Auto) 10.5 Eos % (Auto) 0.8 Baso % (Auto) 0.3 Neut # (Auto) 11.5 H Lymph # (Auto) 1.5 [place] # (Auto) 1.6 H Eos # (Auto) 0.1 Baso # (Auto) 0.0 Immature Gran % 0.5 Nucleated RBC % 0.0 Immature Gran # 0.08 Nucleated RBCs # 0.00 POC Glucose 144 H - Diagnostic Findings Procedure: X-ray: report reviewed by me (Right knee x-ray with no acute findings ; left foot x-ray was mention of possible osteomyelitis of distal aspect of fifth metatarsal head)
--- NOTE | 2016-08-26 09:47 | Event Note ---
S: POD # 5. Overall, feels improved. Decreased pain. Tolerating PO intake. Voiding and passing bowels without difficulty. O: Afebrile; elevated BP overnight MMM CTAB RRR Abd soft, NTND Ext: LLE: foot with decreased edema and erythema; granulation bed without fibrinous exudate and minimal serous drainage; no malodor. RLE: decreased edema and hyperemia with localization to inferomedial aspect of knee. No pain out of proportion with PROM or AROM. Minimally tender -no palpable fluid collection. Labs: CX: MRSA + enterococcus raffinosus Cbc WBC still elevated at 14.8 Venous doppler and right knee xr negative AP POD #5. Left foot looks much improved. WBC persists. Will c/s ID for further assistance. Repeat labs in AM. Continue local wound care. Elevated BP overnight - appreciate hospitalist recs.
[2016-08-26] MEDS ORDERED: AMOXICILLIN/CLAV 500 MG TABLET PO SCH (10:00)
--- NOTE | 2016-08-26 10:39 | CT Report ---
Referring physician: LAYA Baez III EXAM: CT right knee with contrast DATE: 08/26/2016 COMPARISON: X-ray right knee 08/22/2016 REASON: Right knee pain with swelling and erythema TECHNIQUE: Axial images of the abdomen were obtained after administration of 100 cc of Omnipaque 350 IV contrast. Sagittal and coronal reformatted images were acquired. Total DLP was 339.70 mGy*cm. FINDINGS: Evidence of small knee joint effusion with no fracture, dislocation, or bony erosions. There is no periosteal thickening. The patient has a fabella. There is soft tissue swelling/edema. The findings are more pronounced inferiorly medially in the area on the sartorius muscle. No air within this soft tissue abnormality which involves an approximate 43 x 34 x 12 mm area. Arterial calcifications with stenoses in the anterior tibial, posterior tibial, and peroneal arteries. IMPRESSION: Small knee joint effusion with no evidence of osteomyelitis. Soft tissue swelling with fluid density in the medial right lower leg location. This finding could be related to cellulitis or developing abscess. It is difficult to exclude other soft tissue pathology with this finding. Arterial calcifications with stenosis in the anterior tibial, posterior tibial, and peroneal arteries. The findings appear more hemodynamically significant in the posterior tibial and peroneal arteries. The CT exam was performed using one or more of the following dose reduction techniques: Automated exposure control and adjustment of the mA and/or kV according to patient size. PROCEDURE INTERPRETED AT [facility] DEPARTMENT OF RADIOLOGY Final Report Signed by: Dr. Lissa Hernandez
[2016-08-26] MEDS: hydrALAZINE 20 MG/1 ML VIAL IV PRN (17:28)
[2016-08-26] MEDS: AMOXICILLIN 875 MG TABLET PO SCH (17:28)
--- NOTE | 2016-08-26 17:46 | Hospitalist Progress Note ---
Hospitalist: Subjective Interval history: Right knee pain and swelling improving. Left foot pain controlled. No fever. No cp or SOB. Tolerating po. Exam - Constitutional Vitals: Period Temp Pulse Resp BP Sys/Vogt Pulse Ox Last 24 Hr 97.7 F-98.9 F 93-105 16-20 133-195/71-104 93-96 Exam: A and Ox 3 RRR no M CTAB nonlabored Soft, NT, ND, +BS Warm no c/c/e left foot wrapped with JAZMIN bandage in place. Results - Labs CBC & BMP: 08/26/16 05:29 08/22/16 03:37 - Impressions (1) Accelerated hypertension Status: Acute Assessment and plan: Cont Lisinopril 20mg po daily. DC norvasc and start nifedipine 60mg BID. Cont IV hydralazine 10 mg IV every 6 hours as needed for systolic blood pressure greater than 180. off IV fluid Current Visit: Yes (2) Diabetes mellitus type 2, uncontrolled Status: Acute Assessment and plan: Check A1c. Cont current therapy as BS are better controlled. Cont I.S.S. and accuchecks. 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 Organism #1 from the OR specimen is methicillin-resistant staph aureus in his room #2 is enterococcus raffinosus Patient is on vancomycin maintain vancomycin trough levels around 15 mcg/mL. ID added augmentin. Recommending duration of treatment of at least 6 weeks. This is a level B recommendation. Patient should be followed clinically. Obtain case management consultation with intention of arranging for home antibiotics. Will need PICC line for antibiotic. Current Visit: No DVT prophylaxis D/W pt and nurse and all questions answered. Quality Measures - VTE Contraindication to Pharmacological VTE Prophylaxis: High Risk of Bleeding
[2016-08-26] MEDS: INSULIN GLARGINE 100 UNIT/ML SUBCUT SCH (20:37)
[2016-08-27] MEDS: AMOXICILLIN 875 MG TABLET PO SCH (04:23)
[2016-08-27] MEDS: VANCOMYCIN INJ 1,500 MG in SODIUM CHLORIDE 0.9% 500 ML IV SCH (04:23)
[2016-08-27 07:16] LABS: Basophils % 0.2 % (0.0-0.8); Eosinophils # 0.1 10*3/uL (0.0-0.87); Hematocrit 28.2 VOL% (42.0-52.0); Hemoglobin 9.2 GM/DL (14.0-18.0); Immature Granulocytes % 0.7 %; Immature Granulocytes Absolute 0.08 #; Lymphocytes # 1.4 10*3/uL (1.4-4.0); Lymphocytes % 11.3 % (21.2-54.2); Mean Corpuscular HGB Conc 32.6 GM/DL (32-36); Mean Corpuscular Hemoglobin 25 PG (27-34); Mean Corpuscular Volume 77.9 FL (87-102); Mean Platelet Volume 9.7 FL (9.6-12.0); Monocytes # 1.2 10*3/uL (0.11-0.8); Monocytes % 9.9 % (1.7-12.7); Neutrophils # 9.4 10*3/uL (1.4-7.4); Neutrophils % 76.9 % (38.7-73.9); Platelet Count 513 T/CUMM (130-400); Red Blood Count 3.62 MC/CUMM (3.8-5.5); Red Cell Distribution Width 13.9 % (9.3-17.3); White Blood Count 12.2 T/CUMM (4-12)
[2016-08-27 07:51] LABS: Calcium 6.7 MG/DL (8.5-10.1); Osmolality,Calculated 276.5 MOS/KG (273-304); Potassium 3.1 MMOL/L (3.5-5.1)
[2016-08-27] MEDS: PANTOPRAZOLE 40 MG TABLET PO SCH (08:34)
[2016-08-27] MEDS: INSULIN REGULAR 100 UNIT/ML SUBCUT SCH (08:35)
[2016-08-27] MEDS: LISINOPRIL 20 MG TABLET PO SCH (08:36)
--- NOTE | 2016-08-27 09:43 | Discharge Summary ---
Hospital Course - Hospital Course Hospital Course: Patient is a 35-year-old male who underwent surgical debridement of a left foot wound infection was discharged home on antibiotics. He returned with recurrent infection despite compliance with antibiotics which required repeat debridement. Upon return cultures grew MRSA and enterococcus. He responded well to antibiotic treatment. His stay was prolonged with an elevated white blood cell count that was slow to trend down. Ultimately it did trend down. Blood cultures are pending at discharge. Infectious disease and hospitalist consultations were appreciated in the care of this patient. He was ultimately discharged home in good condition with oral antibiotics 6 week regimen and daily wound care. He is instructed to limit the use of the left lower extremity using crutches. He requested a Rollator prescription for which was provided. Pt offered wound care services at [facility] and home health services. He and his sister have experience with wound care and wound packing and would prefer to handle independently. Diagnosis - Discharge Diagnosis (1) Wound infection after surgery Status: Acute (2) Hypertension Status: Chronic (3) DM2 (diabetes mellitus, type 2) Status: Chronic (4) Cellulitis of right lower extremity Status: Acute Specialty Discharge - Follow Up or Referrals Follow up with: Gricel Grier MD [Physician] - 09/04/16 9:00 am Jorge Nagel MD [Physician] - 09/10/16 9:15 am Discharge Plan - Discharge Data Disposition: Disch To Home/Self Care Condition at Discharge: Stable Discharge Diet: diabetic diet Activity: other (Touch down WB LLE. ) Hygiene: may shower Weight Bearing at Discharge: toe touch Driving: not until seen by doctor Contact your physician if you experience:: fever over 101, Difficulty voiding, Redness or swelling, Nausea/Vomiting, Shortness of breath, Bleeding (wound drainage, erythema or malodor), pain uncontrolled by pain medications Wound / Dressing Care Instructions: - Packing changes daily. - Discharge Medications New Amoxicillin Cap/Tab 875 mg PO Q12H #90 tablet Lisinopril [Prinivil] 20 mg PO DAILY #30 tablet Doxycycline Hyclate 100 mg PO BID #90 tablet Continue glipiZIDE [Glucotrol] 10 mg PO AC BREAKFAST #30 tablet HYDROcodone/ACETAMIN 7.5-325 [[place] 7.5-325] 1 tablet PO Q4H PRN #20 tablet PRN Reason: Pain Moderate To Severe (4-10) amLODIPine [Norvasc] 10 mg PO DAILY #30 tablet Discontinued Lisinopril [Prinivil] 5 mg PO DAILY #30 tablet - Follow Up or Referral Follow Up: Gricel Grier MD [Physician] - 09/04/16 9:00 am Jorge Nagel MD [Physician] - 09/10/16 9:15 am - Forms/Instructions Instructions: Doxycycline (By mouth), Amoxicillin/Clavulanate Potassium (By mouth), Wound Infection (DC), How to Take a Blood Pressure (DC), Debridement ( DC) Additional Discharge Instructions: -Pt provided rx for rollator as requested. - Pt provided rx for wound care supplies. -Follow up with primary care physician Re: hypertension and diabetes Exam - Constitutional Vitals: Period Temp Pulse Resp BP Sys/Vogt Pulse Ox Last 24 Hr 98.0 F-98.5 F 90-105 16-20 147-182/68-95 93-96 General appearance: no acute distress, morbidly obese - Eye Eye exam: Absent: conjunctival injection, scleral icterus - Respiratory Respiratory exam: Present: clear to auscultation bilaterally - Cardiovascular Cardiovascular exam: Present: regular rate and rhythm - GI/Abdominal GI/Abdominal exam: Present: normal bowel sounds, soft. Absent: distended, firm , tenderness - Extremities Exam Extremities exam: Absent: calf tenderness, edema - Neurological Exam Neurological exam: Present: alert, oriented X3 - Psychiatric Psychiatric exam: Present: normal affect, normal mood - Skin Skin exam: Present: normal color, warm Discharge Results Procedures and tests throughout hospitalization: Pending Orders 08/26/16 09:35 Blood Culture Stat 08/26/16 17:59 IR PICC line insertion Routine 08/27/16 US guide vascular access Routine No PICC line was placed. The above information is prepopulated by EMR, and I cannot remove. 1. Excisional debridement left foot 2. Venous doppler - no signs dvt Labs on day of discharge: Labs from last 24 hours 08/27/16 08/27/16 08/27/16 07:34 05:44 05:44 WBC 12.2 H RBC 3.62 L Hgb 9.2 L Hct 28.2 L MCV 77.9 L MCH 25 L MCHC 32.6 RDW 13.9 Plt Count 513 H MPV 9.7 Neut % (Auto) 76.9 H Lymph % (Auto) 11.3 L [place] % (Auto) 9.9 Eos % (Auto) 1.0 Baso % (Auto) 0.2 Neut # (Auto) 9.4 H Lymph # (Auto) 1.4 [place] # (Auto) 1.2 H Eos # (Auto) 0.1 Baso # (Auto) 0.0 Immature Gran % 0.7 Nucleated RBC % 0.0 Immature Gran # 0.08 Nucleated RBCs # 0.00 ESR [place] Sodium 139 Potassium 3.1 L Chloride 107 Carbon Dioxide 23 Anion Gap 12.1 BUN 7 Creatinine 1.00 GFR Calculation 121 BUN/Creatinine Ratio 7.00 Glucose 127 H POC Glucose 134 H Hemoglobin A1c Calculated Osmolality 276.5 Calcium 6.7 L C-Reactive Protein 08/26/16 08/26/16 08/26/16 19:18 16:03 10:56 WBC RBC Hgb Hct MCV MCH MCHC RDW Plt Count MPV Neut % (Auto) Lymph % (Auto) [place] % (Auto) Eos % (Auto) Baso % (Auto) Neut # (Auto) Lymph # (Auto) [place] # (Auto) Eos # (Auto) Baso # (Auto) Immature Gran % Nucleated RBC % Immature Gran # Nucleated RBCs # ESR [place] Sodium Potassium Chloride Carbon Dioxide Anion Gap BUN Creatinine GFR Calculation BUN/Creatinine Ratio Glucose POC Glucose 205 H 184 H 157 H Hemoglobin A1c Calculated Osmolality Calcium C-Reactive Protein 08/26/16 08/26/16 08/26/16 09:29 09:29 05:29 WBC RBC Hgb Hct MCV MCH MCHC RDW Plt Count MPV Neut % (Auto) Lymph % (Auto) [place] % (Auto) Eos % (Auto) Baso % (Auto) Neut # (Auto) Lymph # (Auto) [place] # (Auto) Eos # (Auto) Baso # (Auto) Immature Gran % Nucleated RBC % Immature Gran # Nucleated RBCs # ESR [place] 111 H Sodium Potassium Chloride Carbon Dioxide Anion Gap BUN Creatinine GFR Calculation BUN/Creatinine Ratio Glucose POC Glucose Hemoglobin A1c 13.1 H Calculated Osmolality Calcium C-Reactive Protein 9.94 H Preliminary micro results at discharge 08/26/16 09:35 Blood Culture - Preliminary Blood No growth at 1 day 08/26/16 09:36 Blood Culture - Preliminary Blood No growth at 1 day - Imaging and Cardiology Procedure: Chest x-ray: image reviewed by me, report reviewed by me, CT: report reviewed by me (right knee), X-ray: report reviewed by me (right knee/ left foot ) DS: Provider Date of admission: 08/20/16 12:02 Primary care physician: Betsey Billy MD Attending physician on admission: Peterson Baez III., Consults: 08/20/16 15:46 Consult to Pharmacy [CONS] Routine Reason for Pharmacy Consult: Dose/Manage Vancomycin 08/20/16 21:49 Consult to Physician [CONS] Routine Comment: [facility] Consulting Provider Notified: Yes When should Consulting Provider be notified: Now Person Notified: dr goodrich Date Notified: 08/20/16 Time Notified: 21:56 Consult Notification Comment: spoke with dr goodrich about seeing patinet 08/20/16 22:33 Consult to Dietitian [CONS] Routine Reason for Dietitian: Diet Instruction 08/20/16 22:35 Consult to [facility], Educator [CONS] Routine Reason for Real Estate Loan Processor: Initial Insulin Education 08/23/16 11:14 Consult to Physician [CONS] Routine Comment: On-call/need of PICC line Consulting Provider: Consult to Specialist Group: Interventional Radiology When should Consulting Provider be notified: Now 08/24/16 09:26 Consult to Case Mgmt/Social Srvs [CONS] Routine Reason for Case Mgmt/Social Srvs: Discharge Planning Other Consult Comment: Set up [facility] for wound care Thursday08/26/16 08:48 Consult to Physician [CONS] Routine Comment: osteomyelitis Consulting Provider: Gricel Grier Consulting Provider Notified: Yes When should Consulting Provider be notified: Now Person Notified: stephen guerra Date Notified: 08/26/16 Time Notified: 08:56 08/26/16 18:00 Consult to Case Mgmt/Social Srvs [CONS] Routine Reason for Case Mgmt/Social Srvs: Home IV Therapy Consult Comment: home IV antibiotics x 6 weeks Discharging clinician: Sofi Martinez PA-C
--- NOTE | 2016-08-27 10:37 | Infectious Disease Progress ---
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 There was cellulitis on admission reportedly. He had significant leukocytosis on admission and its unfortunate blood cultures were done then. Overall he seems he has improved and his leukocytosis is better today. Recommendations: I am okay with the patient going home today. I can see him in the office in 1 week. He should go home on Augmentin 875 mg twice daily and doxycycline 100 mg twice daily, both for 6 weeks to treat osteomyelitis of the left fifth metatarsal head. Current Visit: Yes (3) Hypertension Status: Chronic Current Visit: Yes (4) Osteomyelitis Status: Acute Assessment and plan: Augmentin and doxycycline as noted above Current Visit: No (5) Right knee pain Status: Acute Assessment and plan: Possible early myositis based on CT findings. The antibiotics for the left foot should come in infection here. He can see me in the office in 1 week and I will follow up the final results of his blood cultures and see how the knee is improving. Current Visit: Yes Infectious Disease - PN: Subj Interval history: Patient says he feels "great". The swelling to the medial aspect of the right knee has improved. No problems with his left foot. He has not had any fever. Infectious Disease Exam (PN) - Constitutional Vitals: Temp Pulse Resp BP Pulse Ox 98.2 F 91 H 20 165/92 93 L 08/27/16 06:57 08/27/16 06:57 08/27/16 06:57 08/27/16 06:57 08/27/16 06:57 General appearance: no acute distress, morbidly obese Exam: General appearance: no acute distress - Eye Eye exam: Present: EOMI. no icterus Pupils: Present: KAREN - ENT ENT exam: no oropharyhgeal exudates - Respiratory Respiratory exam: vesicular BS, no crepitations or wheezes - Cardiovascular Cardiovascular exam: regular rate and rhythm, no murmurs - GI/Abdominal GI/Abdominal exam: normal bowel sounds, soft, non-tender, no organomegaly or mass - Extremities Exam Extremities exam: Open wound to left fifth toe amputation stump noted draining less than yesterday no surrounding erythema, no pain. Erythema and swelling to medial aspect of right knee less than yesterday also less hyperemia and pain. - Skin Skin exam: no rash Results - Labs CBC & BMP: 08/27/16 05:44 08/27/16 05:44 Lab Results: I have reviewed the past 24 hour labs (Blood cultures negative day 1, white blood cell count improved) - Diagnostic Findings Procedure: CT: report reviewed by me (Possible fluid collection to medial aspect of right knee, soft tissue edema. Joint itself is okay.) Quality Measures - VTE Contraindication to Pharmacological VTE Prophylaxis: High Risk of Bleeding Specialty Discharge - Follow Up or Referrals Follow up with: Gricel Grier MD [Physician] - 09/04/16 9:00 am Jorge Nagel MD [Physician] - 09/10/16 9:15 am
[2016-08-27] MEDS: hydrALAZINE 20 MG/1 ML VIAL IV PRN (11:18)
[2016-08-27 11:22] VITALS: BP 191/111
--- NOTE | 2016-08-27 12:05 | Hospitalist Progress Note ---
Hospitalist: Subjective Interval history: Right knee feels better and pt tolerating po. No cp or SOB. No fever. Pain controlled. "I'm ready to go." Exam - Constitutional Vitals: Period Temp Pulse Resp BP Sys/Vogt Pulse Ox Last 24 Hr 98.0 F-98.5 F 72-105 16-20 147-191/68-111 92-96 Exam: A and Ox 3 RRR no M CTAB nonlabored Soft, NT, ND, +BS Warm no c/c/e left foot wrapped with JAZMIN bandage in place. Results - Labs CBC & BMP: 08/27/16 05:44 08/27/16 05:44 - Impressions (1) Accelerated hypertension- I suspect is pain related as well. Status: Acute Assessment and plan: Cont Lisinopril 20mg po daily. Cont nifedipine 60mg BID. Cont IV hydralazine 10 mg IV every 6 hours as needed for systolic blood pressure greater than 180. Pain control. Current Visit: Yes (2) Diabetes mellitus type 2, uncontrolled HgbA1c 13 Status: Acute Assessment and plan: . Cont current therapy as BS are better controlled. Cont I.S.S. and accuchecks. Dm education saw pt. 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 Wound care. Current Visit: No DVT prophylaxis D/W pt and nurse and all questions answered. ok to dc from my standpoint. Will sign off. Will need f/u with PCP in 2 weeks with log of BS. Quality Measures - VTE Contraindication to Pharmacological VTE Prophylaxis: High Risk of Bleeding Specialty Discharge - Follow Up or Referrals Follow up with: Gricel Grier MD [Physician] - 09/04/16 9:00 am Jorge Nagel MD [Physician] - 09/10/16 9:15 am
== END 2016-08-27 12:30 | disposition home or self-care (01) | DRG 854 ==
LOC: N.3E 12:02
PROVIDERS: ADMIT Surgery; ATTEND Surgery

== ENCOUNTER 2016-09-18 15:30 | Inpatient (IN) ==
[2016-09-18] MEDS ORDERED: DEXTROSE 50% 25 GM/50 ML VIAL IV PRN (17:49)
[2016-09-18] MEDS ORDERED: ACETAMINOPHEN 325 MG TABLET PO PRN (17:49)
[2016-09-18] MEDS ORDERED: GLUCAGON 1 MG VIAL IM PRN (17:49)
[2016-09-18] MEDS ORDERED: DOCUSATE SODIUM 100 MG CAPSULE PO PRN (17:49)
[2016-09-18] MEDS ORDERED: POTASSIUM CHLORIDE 20 MEQ TABLET PO PRN (18:34)
[2016-09-18] MEDS ORDERED: hydrALAZINE 20 MG/1 ML VIAL IV ONE (18:35)
--- NOTE | 2016-09-18 18:35 | Hospitalist History & Physical ---
Assessment and Plan (1) DM2 (diabetes mellitus, type 2) Status: Chronic Assessment and plan: Accu-Cheks before meals at bedtime. sliding scale insulin initiated. consult diabetes education for patient. A1c in a.m. Current Visit: No Qualifiers: Diabetes mellitus complication status: with neurologic complications Diabetes mellitus complication detail: with polyneuropathy Diabetes mellitus detention insulin use: without detention use Qualified Code(s): E11.42 - Type 2 diabetes mellitus with diabetic polyneuropathy (2) Hypertension Status: Chronic Assessment and plan: Patient blood pressure medications will be restarted. Patient's blood pressure currently elevated. Will monitor patient. Current Visit: No (3) Wound infection after surgery Status: Acute Assessment and plan: Patient status post left fifth toe amputation. Wound care consulted to evaluate patient. Current Visit: No History of Present Illness Chief complaint: Shortness of breath History of present illness: Mr. Marquez is a 35 year old male with a history of hypertension, diabetes, status post amputation of left fifth toe, osteomyelitis, and cellulitis that was a direct admit from [facility] today for further evaluation of shortness of breath. Patient is status post amputation of left fifth toe by Dr. Gaitan on 07/25. Patient has been seen multiple times since amputation for infection and debridement of wound. Patient has been on 2 antibiotics for infection. Patient presented to the [facility] and was seen today for evaluation of shortness of breath. Patient stated that the shortness of breath having going on for about 1 week and that he noted bilateral lower extremity edema for about 2 weeks. CXR at outside facility revealed bilateral pleural effusions. Pt. was transferred here. On arrival, patient was noted to be short of breath and hypertensive. Patient was noted to have bilateral lower extremity. Patient revealed that he had been out of his blood pressure medications for about 2 days. Labs from outside facility revealed potassium of 3.3, BUN/creatinine 30/1.8 respectively, and BNP 1727. Repeat labs will follow. Pt. will be further evaluated and treated. MD to follow. Home Medications Medication Instructions Recorded Confirmed Type glipiZIDE [Glucotrol] 10 mg PO AC BREAKFAST #30 tablet 07/28/16 09/18/16 Rx Lisinopril [Prinivil] 20 mg PO DAILY #30 tablet 08/27/16 09/18/16 Rx hydrALAZINE TAB [Apresoline Tab] 25 mg PO BID 09/18/16 09/18/16 History hydroCHLOROthiazide 25 mg PO DAILY 09/18/16 09/18/16 History [Hydrochlorothiazide] Allergies Allergy/AdvReac Type Severity Reaction Status Date / Time sulfamethoxazole Allergy Severe SHORTNESS Verified 08/24/16 21:05 [From Bactrim] OF BREATH trimethoprim [From Bactrim] Allergy Severe SHORTNESS Verified 08/24/16 21:05 OF BREATH Medical,Surgical,& Family Hx - Medical History Cardio: History of: Hypertension HEENT: History of: Eye Problem (wear glasses) Endocrine: History of: Diabetes Mellitus (NIDDM) Musculoskeletal: History of: Musculoskeletal Problems (Osteomyelitis left foot) - Surgical History Orthopedic Surgeries: Surgical HX of;: Orthopedic Surgery (Left knee arthroscopy ; left 5th transmetatarsal amputation) - Family History Family History: Reports;: Family Heart Disease (maternal aunt and uncle) Denies;: Family Anesthesia Reaction, Family Cancer, Family Diabetes, Family Hematology, Family Hypertension, Family Psychiatric Problems, Family Stroke, Additional Family History - Social History Smoking Status: Never smoker Frequency of Alcohol Use: None Type of Drug Use: None Marital Status: Single Lives With:: Alone Functional capacity: independent ambulation - Constitutional Constitutional: Absent: chills, fever(s), weakness - EENT Eyes: Present: loss of vision, requires corrective lense Ears: Absent: decreased hearing Nose, mouth and throat: Absent: dysphagia, headache(s) - Cardiovascular Cardiovascular: Present: dyspnea on exertion, edema. Absent: lightheadedness - Respiratory Respiratory: Present: cough, dyspnea on exertion. Absent: hemoptysis - Gastrointestinal Gastrointestinal: Absent: nausea, vomiting - Genitourinary Genitourinary: Absent: difficulty urinating - Neurological Neurological: Absent: confusion, dizziness, numbness - Psychiatric Psychiatric: Absent: confusion, depression - Hematologic/Lymphatic Hematologic/Lymphatic: Absent: easy bleeding, easy bruising Exam - Constitutional Vitals: Period Temp Pulse Resp BP Sys/Vogt Pulse Ox Last 24 Hr 93 16 General appearance: no acute distress (Patient was noted to be short of breath) , over weight - Head Head exam: Present: normal inspection, normocephalic - Eye Eye exam: Present: EOMI. Absent: periorbital swelling Pupils: Present: KAREN. Absent: dilated - ENT ENT exam: Present: normal exam - Neck Neck exam: Present: normal inspection - Respiratory Respiratory exam: Present: other (Coarse). Absent: wheezes - Cardiovascular Cardiovascular exam: Present: regular rate and rhythm - GI/Abdominal GI/Abdominal exam: Present: normal bowel sounds, soft. Absent: tenderness - Extremities Exam Extremities exam: Present: normal capillary refill, full ROM, edema (Bilateral lower extremities) - Neurological Exam Neurological exam: Present: alert, oriented X3, normal gait - Psychiatric Psychiatric exam: Present: normal affect, normal mood - Skin Skin exam: Present: normal color, warm, dry Results - Labs Labs: Labs reviewed from outside facility Protein 8.2 Calcium 8.5 GFR 46 Creatinine 1.8 BUN 30 Sodium 142 Potassium 3.3 Chloride 103 CO2 28.5 Albumin 2.6 Bilirubin 0.30 Alk phos 114 WBC 8.6 Platelet count 375 Hemoglobin 10.3 Hematocrit 32.9
[2016-09-18] MEDS: FUROSEMIDE 40 MG/4 ML VIAL IV SCH (20:06)
[2016-09-18 20:33] LABS: Apearance,Urine CLEAR (Clear); Bilirubin,Urine Negative (Negative); Blood, Urine Small mg/dL (Negative); Glucose,Urine (UA) Negative (Negative); Ketones,Urine Negative (Negative); Nitrite,Urine Negative (Negative); Protein,Urine 30 MG/DL; RBC,Urine 2 /HPF (0-4); Squamous Epithelial Cell,Urine Occasional /HPF (0-10); Urine Color Colorless (Yellow); Urine Specific Gravity 1.005 (1.001-1.035); Urine Urobilinogen < 2.0 EU/DL (0.2-1.0); WBC,Urine <1 /HPF (0-6)
[2016-09-18] MEDS: hydrALAZINE 25 MG TABLET PO SCH (21:48)
[2016-09-18] MEDS: DOXYCYCLINE HYCLATE 100 MG CAPSULE PO SCH (21:48)
[2016-09-18] MEDS: POTASSIUM CHLORIDE 20 MEQ TABLET PO SCH (21:48)
[2016-09-18] MEDS: AMOXICILLIN/CLAV 875 MG TABLET PO SCH (21:48)
[2016-09-18] MEDS: INSULIN LISPRO 100 UNIT/ML SUBCUT SCH (21:48)
[2016-09-19 05:24] LABS: Basophils # 0.1 10*3/uL (0.0-0.2); Basophils % 0.5 % (0.0-0.8); Eosinophils # 0.2 10*3/uL (0.0-0.87); Eosinophils % 2.1 % (0.00-10.9); Hematocrit 28.2 VOL% (42.0-52.0); Hemoglobin 8.9 GM/DL (14.0-18.0); Immature Granulocytes % 0.3 %; Immature Granulocytes Absolute 0.03 #; Lymphocytes # 2.2 10*3/uL (1.4-4.0); Mean Corpuscular HGB Conc 31.6 GM/DL (32-36); Mean Corpuscular Hemoglobin 25 PG (27-34); Mean Platelet Volume 11.5 FL (9.6-12.0); Monocytes # 0.8 10*3/uL (0.11-0.8); Monocytes % 7.8 % (1.7-12.7); Neutrophils # 6.7 10*3/uL (1.4-7.4); Neutrophils % 67.3 % (38.7-73.9); Platelet Count 364 T/CUMM (130-400); Red Blood Count 3.57 MC/CUMM (3.8-5.5); Red Cell Distribution Width 16.3 % (9.3-17.3); White Blood Count 9.9 T/CUMM (4-12)
[2016-09-19 06:16] LABS: Calcium 8.2 MG/DL (8.5-10.1); Free T4 (Free Thyroxine) 1.38 NG/DL (0.76-1.46); Magnesium 1.7 MG/DL (1.8-2.4); Osmolality,Calculated 290.1 MOS/KG (273-304); Potassium 3.3 MMOL/L (3.5-5.1); Risk Ratio 3.08; Thyroid Stimulating Hormone 1.15 uIU/ml (0.358-3.74); VLDL CHOLESTEROL 17.4 MG/DL
--- NOTE | 2016-09-19 07:26 | XRay Report ---
XR chest 2V Indication: Shortness of breath. Pleural effusions. Comparison: Chest x-ray 08/20/2016 Technique: PA and lateral chest x-ray was performed. Findings: Limited inspiration is demonstrated. Interval increase in stranding overlying each hemidiaphragm suggests worsening atelectasis and/or pulmonary edema. Left-sided pleural effusion is present small in size. Trace right-sided pleural effusion is present. Bones and soft tissues are stable. Heart size is stable. Impression: 1. Interval increase in bibasilar parenchymal opacities has differential considerations including atelectasis and pulmonary edema. 2. Small left-sided pleural effusion. Trace right-sided pleural effusion is additionally suggested. 09/19/2016 7:23 AM PROCEDURE INTERPRETED AT [facility] DEPARTMENT OF RADIOLOGY Final Report Signed by: Dr. Albaro Trevino
[2016-09-19] MEDS: glipiZIDE 10 MG TABLET PO SCH (07:59)
[2016-09-19] MEDS: INSULIN LISPRO 100 UNIT/ML SUBCUT SCH ×4 (08:59→21:42)
[2016-09-19] MEDS ORDERED: hydroCHLOROthiazide 25 MG TABLET PO SCH (09:00)
[2016-09-19] MEDS: FUROSEMIDE 40 MG/4 ML VIAL IV SCH ×2 (09:10→16:15)
[2016-09-19] MEDS: AMOXICILLIN/CLAV 875 MG TABLET PO SCH ×2 (09:12→21:42)
[2016-09-19] MEDS: DOXYCYCLINE HYCLATE 100 MG CAPSULE PO SCH ×2 (09:12→21:42)
[2016-09-19] MEDS: hydrALAZINE 25 MG TABLET PO SCH ×2 (09:12→21:42)
[2016-09-19] MEDS: POTASSIUM CHLORIDE 20 MEQ TABLET PO SCH ×2 (09:13→21:42)
[2016-09-19] MEDS: CHLORTHALIDONE 25 MG TABLET PO SCH (09:13)
[2016-09-19] MEDS: LISINOPRIL 20 MG TABLET PO SCH (09:13)
--- NOTE | 2016-09-19 09:31 | ECHO Report ---
Balaji Marquezian Exam Date: 09/19/2016 08:05 Referring Physician: Technologist: Age: 35 Ht (in): Wt (lb): Gender: M Exam Location: [facility] Echo Indications: BP: / HR: Rhythm: Sinus Technical Quality: Average IMPRESSIONS Overall ejection fraction is 60%. There is moderate concentric left ventricular hypertrophy Diastolic parameters are most consistent with grade 3 diastolic dysfunction restrictive physiology. Mitral valve is normal there is mild mitral regurgitation is central and only in early systole. Biatrial enlargement MEASUREMENTS (Male / Female) Normal Values 2D ECHO LV Diastolic Diameter PLAX 4.0 cm 4.2 - 5.9 / 3.9 - 5.3 cm LV Systolic Diameter PLAX 2.2 cm LV Fractional Shortening PLAX 45.4 % IVS Diastolic Thickness 1.4 cm 0.6 - 1.0 / 0.6 - 0.9 cm LVPW Diastolic Thickness 1.4 cm 0.6 - 1.0 / 0.6 - 0.9 cm RV Internal Dim ED PLAX 2.7 cm Aortic Root Diameter 3.7 cm LA Systolic Diameter LX 4.9 cm 3.0 - 4.0 / 2.7 - 3.8 cm FINDINGS Left Ventricle Overall ejection fraction is 60%. The left ventricular hypertrophy appears to be at least moderate. Diastolic parameters are most consistent with grade 3 diastolic dysfunction restrictive physiology. The color tissue Doppler flow velocities are less than 6 cm/s. Mitral inflows appear normal Right Ventricle Right ventricular structure and function are normal Right Atrium Right atrium is enlarged Left Atrium Left atrium is enlarged Mitral Valve Mitral valve is normal there is mild mitral regurgitation is central and only in early systole Aortic Valve Aortic valve is normal Tricuspid Valve The tricuspid valve is normal Pulmonic Valve Pulmonic valve is normal maximal ossicles that is 1.3 m/s which corresponds with a peak gradient of 4 mmHg Pericardium There is no pericardial effusion Aorta Visualized portion of thoracic aorta is normal Lydia Helton (Electronically Signed) Final Date: 19 September 2016 09:30
[2016-09-19] MEDS: POTASSIUM CHLORIDE 20 MEQ TABLET PO PRN ×3 (09:42→16:17)
--- NOTE | 2016-09-19 15:26 | Hospitalist Progress Note ---
Assessment and Plan (1) Volume overload Status: Acute Assessment and plan: Continue with diuretics. Current Visit: Yes (2) DM2 (diabetes mellitus, type 2) Status: Chronic Assessment and plan: Continue home medicines. Current Visit: No Qualifiers: Diabetes mellitus complication status: with neurologic complications Diabetes mellitus complication detail: with polyneuropathy Diabetes mellitus nursing home insulin use: without billing spec use Qualified Code(s): E11.42 - Type 2 diabetes mellitus with diabetic polyneuropathy (3) Hypertension Status: Chronic Current Visit: No Qualifiers: Hypertension type: essential hypertension Qualified Code(s): I10 - Essential (primary) hypertension Hospitalist: Subjective Interval history: The patient is sitting up on side of bed resting comfortably. He states his breathing has improved. Still has dramatic lower extremity swelling. Follow- up chest x-ray done today shows evidence of pleural effusion and increased volume overload. Urine output has been good today. We will continue to observe for additional 24 hours and repeat chest x-ray in a.m. Exam - Constitutional Vitals: Period Temp Pulse Resp BP Sys/Vogt Pulse Ox Last 24 Hr 97.4 F-98.7 F 87-96 16-21 145-197/87-113 93-95 General appearance: over weight - Head Head exam: Present: normal inspection - ENT ENT exam: Present: normal exam - Respiratory Respiratory exam: Present: clear to auscultation bilaterally - Cardiovascular Cardiovascular exam: Present: regular rate and rhythm - GI/Abdominal GI/Abdominal exam: Present: normal bowel sounds - Extremities Exam Extremities exam: Present: normal inspection, full ROM, edema (2+) - Neurological Exam Neurological exam: Present: alert, oriented X3, CN II-XII intact - Psychiatric Psychiatric exam: Present: normal affect - Skin Skin exam: Present: normal color Results - Labs CBC & BMP: 09/19/16 03:45 09/19/16 03:45
[2016-09-19] MEDS ORDERED: CARVEDILOL 3.125 MG TABLET PO SCH (21:00)
[2016-09-19] MEDS ORDERED: FUROSEMIDE 40 MG/4 ML VIAL IV ONE (22:00)
[2016-09-19] MEDS ORDERED: POTASSIUM CHLORIDE 20 MEQ TABLET PO ONE (22:00)
[2016-09-20 06:32] LABS: Basophils % 0.5 % (0.0-0.8); Eosinophils # 0.2 10*3/uL (0.0-0.87); Eosinophils % 2.1 % (0.00-10.9); Hematocrit 28.9 VOL% (42.0-52.0); Hemoglobin 9.1 GM/DL (14.0-18.0); Immature Granulocytes % 0.6 %; Immature Granulocytes Absolute 0.05 #; Lymphocytes # 1.9 10*3/uL (1.4-4.0); Lymphocytes % 21.3 % (21.2-54.2); Mean Corpuscular HGB Conc 31.5 GM/DL (32-36); Mean Corpuscular Hemoglobin 25 PG (27-34); Mean Corpuscular Volume 79.2 FL (87-102); Mean Platelet Volume 10.6 FL (9.6-12.0); Monocytes # 0.7 10*3/uL (0.11-0.8); Monocytes % 7.5 % (1.7-12.7); Neutrophils # 5.9 10*3/uL (1.4-7.4); Platelet Count 332 T/CUMM (130-400); Red Blood Count 3.65 MC/CUMM (3.8-5.5); Red Cell Distribution Width 16.3 % (9.3-17.3); White Blood Count 8.7 T/CUMM (4-12)
[2016-09-20 07:12] LABS: Calcium 8.7 MG/DL (8.5-10.1); Magnesium 1.7 MG/DL (1.8-2.4); Osmolality,Calculated 281.7 MOS/KG (273-304); Potassium 3.7 MMOL/L (3.5-5.1)
[2016-09-20] MEDS: INSULIN LISPRO 100 UNIT/ML SUBCUT SCH ×4 (07:30→21:28)
--- NOTE | 2016-09-20 07:55 | Hospitalist Progress Note ---
Assessment and Plan - Time spent with patient Time spent with patient: Less than 30 minutes (1) Diastolic congestive heart failure with preserved left ventricular function , NYHA class 2 Status: Acute Assessment and plan: Patient has evidence of decompensated congestive heart failure which is diastolic in nature with preserved left ventricular function as recent echo revealed ejection fraction of 60%. We will continue to diurese and control his blood pressure. Hopefully can be discharged tomorrow with outpatient follow- up. Consider outpatient sleep study as well. Current Visit: Yes (2) Hypertension Status: Chronic Assessment and plan: Patient's blood pressure is elevated with diastolics greater than 100. Will make further adjustments today. Current Visit: No Qualifiers: Hypertension type: essential hypertension Qualified Code(s): I10 - Essential (primary) hypertension (3) Diabetes mellitus type 2, uncontrolled Status: Chronic Assessment and plan: Blood sugars are currently well controlled. Continue current medical regimen. Current Visit: No Qualifiers: Diabetes mellitus complication status: with hyperglycemia Diabetes mellitus custodial insulin use: without custodial use Qualified Code(s): E11.65 - Type 2 diabetes mellitus with hyperglycemia (4) Chronic kidney disease, stage 2, mildly decreased GFR Status: Chronic Assessment and plan: Patient's creatinine is remained stable at 1.6. Continue current medical regimen and follow closely. Avoid any nephrotoxic agents or insults. Current Visit: Yes Hospitalist: Subjective Interval history: Mr. Marquez is doing well today. He sitting on side eating breakfast. His lower extremity has improved. He states his breathing has improved as well as he does not have as much dyspnea with exertion. Exam - Constitutional Vitals: Period Temp Pulse Resp BP Sys/Vogt Pulse Ox Last 24 Hr 97.8 F-98.7 F 87-94 18-21 158-188/92-115 88-95 General appearance: no acute distress - Head Head exam: Present: normocephalic, atraumatic - Eye Eye exam: Present: EOMI Pupils: Present: KAREN - ENT ENT exam: Present: normal exam - Neck Neck exam: Absent: lymphadenopathy, meningismus, tenderness, thyromegaly - Respiratory Respiratory exam: Present: rales (Few basilar rales). Absent: accessory muscle use - Cardiovascular Cardiovascular exam: Present: regular rate and rhythm - GI/Abdominal GI/Abdominal exam: Present: normal bowel sounds, soft. Absent: tenderness - Extremities Exam Extremities exam: Present: calf tenderness, edema (1+ left greater than right) - Back Exam Back exam: Present: normal inspection - Neurological Exam Neurological exam: Present: alert, oriented X3, CN II-XII intact. Absent: motor sensory deficit - Psychiatric Psychiatric exam: Present: normal affect, normal mood. Absent: agitated, anxious - Skin Skin exam: Present: warm, dry. Absent: erythema, rash Results - Labs CBC & BMP: 09/20/16 06:12 09/20/16 06:13 Lab Results: I have reviewed the past 24 hour labs - Diagnostic Findings Procedure: Chest x-ray: image reviewed by me
[2016-09-20] MEDS: FUROSEMIDE 20 MG TABLET PO SCH ×2 (08:59→17:49)
[2016-09-20] MEDS: glipiZIDE 10 MG TABLET PO SCH (08:59)
[2016-09-20] MEDS: POTASSIUM CHLORIDE 20 MEQ TABLET PO SCH ×2 (09:37→20:49)
[2016-09-20] MEDS: hydrALAZINE 25 MG TABLET PO SCH ×2 (09:37→20:51)
[2016-09-20] MEDS: DOXYCYCLINE HYCLATE 100 MG CAPSULE PO SCH ×2 (09:38→20:49)
[2016-09-20] MEDS: CARVEDILOL 12.5 MG TABLET PO SCH ×2 (09:38→20:49)
[2016-09-20] MEDS: AMOXICILLIN/CLAV 875 MG TABLET PO SCH ×2 (09:38→20:48)
[2016-09-20] MEDS: CHLORTHALIDONE 25 MG TABLET PO SCH (09:38)
[2016-09-20] MEDS: POTASSIUM CHLORIDE 20 MEQ TABLET PO PRN (09:38)
[2016-09-20] MEDS: LISINOPRIL 20 MG TABLET PO SCH (09:38)
--- NOTE | 2016-09-20 10:46 | XRay Report ---
Exam: XR chest 2V Indication: Shortness of breath Comparison study: 09/19/2016 Findings: The heart, mediastinum and bony structures are stable from prior. Patchy right upper lobe, perihilar and basilar interstitial and airspace opacities are noted, essentially unchanged. There is no pneumothorax. Blunting of costophrenic angles likely representing small pleural effusions also appear similar to prior. Osseous structures are stable. Impression: Patchy right upper lobe interstitial/airspace opacities may represent developing infectious/inflammatory infiltrate. Otherwise, no significant change. PROCEDURE INTERPRETED AT [facility] DEPARTMENT OF RADIOLOGY Final Report Signed by: Nitin Riley
[2016-09-20] MEDS ORDERED: FUROSEMIDE 40 MG/4 ML VIAL IV ONE (14:00)
[2016-09-21 06:38] LABS: Calcium 8.5 MG/DL (8.5-10.1); Osmolality,Calculated 280.8 MOS/KG (273-304); Potassium 3.9 MMOL/L (3.5-5.1)
[2016-09-21] MEDS: glipiZIDE 10 MG TABLET PO SCH (07:25)
[2016-09-21] MEDS: INSULIN LISPRO 100 UNIT/ML SUBCUT SCH ×2 (07:25→11:31)
[2016-09-21] MEDS: FUROSEMIDE 20 MG TABLET PO SCH ×2 (07:25→14:57)
[2016-09-21] MEDS: POTASSIUM CHLORIDE 20 MEQ TABLET PO SCH (08:48)
[2016-09-21] MEDS: AMOXICILLIN/CLAV 875 MG TABLET PO SCH (08:48)
[2016-09-21] MEDS: CARVEDILOL 12.5 MG TABLET PO SCH (08:48)
[2016-09-21] MEDS: hydrALAZINE 25 MG TABLET PO SCH (08:48)
[2016-09-21] MEDS: LISINOPRIL 20 MG TABLET PO SCH (08:48)
[2016-09-21] MEDS: CHLORTHALIDONE 25 MG TABLET PO SCH (08:48)
[2016-09-21] MEDS: DOXYCYCLINE HYCLATE 100 MG CAPSULE PO SCH (08:48)
[2016-09-21] MEDS: POTASSIUM CHLORIDE 20 MEQ TABLET PO PRN (08:50)
--- NOTE | 2016-09-21 09:43 | Discharge Summary ---
Hospital Course - Hospital Course Hospital Course: 35-year-old male who is referred from [facility] for evaluation of progressive shortness of breath. He denies any fever, chills, cough or sputum production. He had noted increasing orthopnea as well as dyspnea on exertion which was unquantitated. He has been seen by Dr. Gaitan for an infection of his left foot recently had Doppler studies of his lower extremity revealing no evidence of DVT. He had run out of his medications about 2 days prior. He was admitted to the hospitalist service for further evaluation. He was diuresed and improved. Echocardiogram was performed and revealed an ejection fraction of 60% with evidence of diastolic dysfunction. He had chronic kidney disease and his creatinine remains stable at 1.6. His blood sugars were well controlled in the hospital on his current medical regimen and diabetic diet. He was noted to be hypertensive during his stay we made adjustments in his antihypertensive therapy which is likely etiology of his diastolic congestive heart failure and he continues to improve clinically and symptomatically. His O2 sats on room air just prior to discharge were 98% as witnessed by me. It is now felt he can be discharged home safely and follow- up closely as an outpatient for his blood pressure, diabetes, electrolytes and renal function. - Time spent with patient Time with patient DS: Less than 30 minutes Diagnosis - Discharge Diagnosis (1) Diastolic congestive heart failure with preserved left ventricular function , NYHA class 2 Status: Acute (2) Hypertension Status: Chronic (3) Diabetes mellitus type 2, uncontrolled Status: Chronic (4) Chronic kidney disease, stage 2, mildly decreased GFR Status: Chronic Discharge Plan - Discharge Data Disposition: Disch To Home/Self Care Condition at Discharge: Stable Discharge Diet: diabetic diet Activity: resume usual activities as tolerated Contact your physician if you experience:: fever over 101, Shortness of breath - Discharge Medications New Carvedilol [Coreg] 12.5 mg PO BID #60 tablet Furosemide Tab [Lasix Tab] 40 mg PO BID DIURETIC #120 tablet Potassium Chloride Cap/Tab [K Dur] 20 meq PO BID #60 tablet Continue glipiZIDE [Glucotrol] 10 mg PO AC BREAKFAST #30 tablet Lisinopril [Prinivil] 20 mg PO DAILY #30 tablet hydrALAZINE TAB [Apresoline Tab] 25 mg PO BID Amoxicillin/Clav Tab [Augmentin Tab] 875 mg PO Q12HR Chlorthalidone 25 mg PO DAILY Doxycycline Hyclate 100 mg PO BID Discontinued hydroCHLOROthiazide [Hydrochlorothiazide] 25 mg PO DAILY - Follow Up or Referral Follow Up: [facility] [Other] - 3 Days - Forms/Instructions Additional Discharge Instructions: Follow-up [facility] in 3 days for follow-up electrolytes and renal function as well as blood pressure and diabetes control. May consider outpatient sleep study. Exam - Constitutional Vitals: Period Temp Pulse Resp BP Sys/Vogt Pulse Ox Last 24 Hr 97.4 F-98.5 F 81-88 16-22 143-170/84-107 87-95 General appearance: no acute distress - Head Head exam: Present: normocephalic, atraumatic - Eye Eye exam: Present: EOMI Pupils: Present: KAREN - ENT ENT exam: Present: normal exam - Neck Neck exam: Present: normal inspection - Respiratory Respiratory exam: Present: clear to auscultation bilaterally. Absent: rales, rhonchi, wheezes - Cardiovascular Cardiovascular exam: Present: regular rate and rhythm. Absent: gallop, systolic murmur, tachycardia - GI/Abdominal GI/Abdominal exam: Present: normal bowel sounds, soft. Absent: tenderness, rebound - Extremities Exam Extremities exam: Present: edema (Residual trace edema bilaterally). Absent: calf tenderness - Back Exam Back exam: Present: normal inspection - Neurological Exam Neurological exam: Present: alert, oriented X3, CN II-XII intact. Absent: motor sensory deficit - Psychiatric Psychiatric exam: Present: normal affect, normal mood. Absent: agitated, anxious - Skin Skin exam: Present: warm, dry. Absent: erythema, rash Discharge Results Labs on day of discharge: Labs from last 24 hours 09/21/16 09/21/16 09/20/16 06:54 05:32 19:54 Sodium 137 Potassium 3.9 Chloride 98 Carbon Dioxide 30 Anion Gap 12.9 BUN 26 H Creatinine 1.60 H GFR Calculation 68 BUN/Creatinine Ratio 16.00 Glucose 155 H POC Glucose 162 H 121 H Calculated Osmolality 280.8 Calcium 8.5 09/20/16 09/20/16 15:19 11:41 Sodium Potassium Chloride Carbon Dioxide Anion Gap BUN Creatinine GFR Calculation BUN/Creatinine Ratio Glucose POC Glucose 70 L 153 H Calculated Osmolality Calcium - Imaging and Cardiology Procedure: Chest x-ray: report reviewed by DS: Provider Date of admission: 06/01/17 17:44 Primary care physician: Betsey Billy MD Attending physician on admission: Thomas Bae MD Consults: 09/18/16 18:33 Consult to Wound Care - [facility] [CONS] Routine Reason for Wound Care: Wound Care Management 09/18/16 18:38 Consult to [facility], Educator [CONS] Routine Reason for Surgical Consultant: Diabetes Education 09/18/16 18:49 Consult to Dietitian [CONS] Routine Reason for Dietitian: Dietary Consult Consult Comment: Uncontrolled diabetes Discharging clinician: Roberto Carter Expected date of discharge: 09/21/16
[2016-09-21 11:59] VITALS: BP 154/97
== END 2016-09-21 15:10 | disposition home or self-care (01) | DRG 291 ==
LOC: N.5E 17:24 → SUATTDRO 17:44
PROVIDERS: ADMIT Internal Medicine; ATTEND Hospitalist